=== PATIENT | male | born 1955 | race Caucasian/White ===

== ENCOUNTER 2016-05-17 03:30 | Emergency (ER) | payer MEDICARE, MEDICAID ==
--- NOTE | 2016-05-17 03:58 | DIRPT ---
CLINICAL DATA: Altered mental status. Lower extremity weakness. Code stroke. EXAM: CT HEAD WITHOUT CONTRAST TECHNIQUE: Contiguous axial images were obtained from the base of the skull through the vertex without intravenous contrast. COMPARISON: CT 08/15/2014 FINDINGS: Remote right cerebellar infarct, unchanged. No CT findings of acute ischemia. Generalized atrophy and chronic small vessel ischemic change, stable from prior. No intracranial hemorrhage, mass effect, or midline shift. No hydrocephalus. The basilar cisterns are patent. No evidence of territorial infarct. No intracranial fluid collection. Calvarium is intact. Included paranasal sinuses and mastoid air cells are well aerated. IMPRESSION: 1. No acute intracranial abnormality. 2. Stable atrophy, chronic small vessel ischemic change, and remote right cerebellar infarct. Electronically Signed By: Emiliana Garcia M.D. On: 05/17/2016 03:56
[2016-05-17 04:05] VITALS: TEMP 97.9; BMI 348.7
--- NOTE | 2016-05-17 04:22 | DIRPT ---
CLINICAL DATA: Initial evaluation for eighth sepsis. EXAM: PORTABLE CHEST 1 VIEW COMPARISON: Prior study from 03/10/2016. FINDINGS: Right-sided transvenous pacemaker/AICD is in place, stable. Cardiomegaly unchanged. Mediastinal silhouette within normal limits. Lungs are normally inflated. Mild central perihilar vascular congestion without overt pulmonary edema. No focal infiltrates. No pneumothorax. No acute osseus abnormality. IMPRESSION: 1. Stable cardiomegaly with mild central perihilar vascular congestion without overt pulmonary edema. 2. No other active cardiopulmonary disease. Electronically Signed By: Miguel Angel Heard M.D. On: 05/17/2016 04:19
--- NOTE | 2016-05-17 04:41 | EDPRACDOC ---
- General Information Chief Complaint: Generalized Weakness Stated Complaint: WEAKNESS Time Seen by Provider: 05/17/16 03:36 Information Source: Patient, [facility], [employer] Mode Of Arrival: Ambulance Home Medications: Home Medications Spironolactone [Aldactone] 25 mg PO BID 07/15/13 Gabapentin [Neurontin] 100 mg PO BID 02/14/14 Nitroglycerin [Nitrostat] 0.4 mg SL Q5MX3 PRN 02/14/14 Omeprazole [Prilosec] 40 mg PO HS 02/14/14 Vitamins, Multiple [Unicap] 1 cap PO DAILY 02/14/14 Metolazone [Zaroxolyn] 5 mg PO DAILY PRN 07/19/14 Glipizide [Glucotrol] 10 mg PO BID 08/15/14 POTASSIUM CHLORIDE Tablet [Klor-Con M20] 20 meq PO BID 08/15/14 Alprazolam [Xanax] 0.5 mg PO BID 04/20/15 Aspirin/Dipyridamole [Aggrenox 25 mg-200 mg Capsule] 1 each PO BID 04/20/15 Carvedilol [Coreg] 3.125 mg PO BID 04/20/15 Febuxostat [Uloric] 80 mg PO Q48H 04/20/15 Hydrocodone Bit/Acetaminophen [Buckeye 10-325 Tablet] 1 each PO Q6H PRN 04/20/15 Lactulose [Constulose] 15 ml PO .PRN PRN 04/20/15 Mag Hydrox/Al Hydrox/Simeth [Maalox Maximum Strength Susp] 30 ml PO Q4H PRN Magnesium Hydroxide/Al Hydrox [Mylanta Liquid] 30 ml PO Q4H PRN 04/20/15 Temazepam [Restoril] 15 mg PO HS PRN 04/20/15 Torsemide [Demadex] 40 mg PO QAM 04/20/15 Amiodarone HCl 100 mg PO DAILY 04/27/15 Fluoxetine HCl [Prozac] 40 mg PO DAILY 04/27/15 Insulin Aspart [Novolog] 6 units SQ TIDAC 04/27/15 Insulin Glargine,Hum.rec.anlog [Toujeo Solostar] 80 unit SQ DAILY 04/27/15 Isosorbide Mononitrate [Imdur] 60 mg PO DAILY 04/27/15 Docusate Sodium [Colace] 100 mg PO DAILY 12/21/15 Acetaminophen Ex Str Tablet [TYLENOL EXTRA STRENGTH Tablet] 1,000 mg PO QID PRN 12/29/15 Cholecalciferol (Vitamin D3) [Vitamin D3] 2,000 unit PO DAILY 12/29/15 Amoxicillin/Potassium Clav [Augmentin 875-125 Tablet] 1 each PO TIDAC #30 tablet 01/02/16 Lactobacillus Acidophilus [Florajen] 460 mg PO DAILY #60 capsule 01/02/16 Moxifloxacin HCl [Avelox] 400 mg PO DAILY #10 tablet 01/02/16 Tramadol HCl 50 mg PO Q6-8H PRN #60 tablet 01/02/16 Ciprofloxacin HCl [Cipro] 500 mg PO BID #20 tab 05/17/16 Allergies/Adverse Reactions: Allergies Allergy/AdvReac Type Severity Reaction Status Date / Time Cephalosporins Allergy Unknown Unknown/See Verified 10/05/15 08:59 Comments morphine Allergy Unknown Hypotension Verified 10/05/15 08:59 Penicillins Allergy Unknown/See Verified 10/05/15 08:59 Comments - History of Present Illness Onset: 7 hours Exact Onset of Symptoms: Unknown HPI: AT 0300, THE CUSTODIAL STAFF NOTED THAT THE PATIENT WAS WEAKER THAN NORMAL. THEY WERE CONCERNED HE COULD HAVE AN INFECTION. EMS NOTED FACIAL DROOPING AND WEAKNESS, CONCERN FOR STROKE. UNCLEAR ONSET. PT HAS HAD PRIOR CVA, CHRONIC LEFT SIDED WEAKNESS AND ATAXIA. Symptoms Started: Reports: Gradually, At Rest Symptoms Description: Constant ED Past Medical History - Patient Medical History Neurological History: Reports: Cerebrovascular Accident (most recent October 2012.) Cardiac History: Reports: Coronary Artery Disease, Atrial Fibrillation, Hypertension, Congestive Heart Failure (Severe. Echo 2013: EF 30% CHR. 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 Denies: Substance Use Disorder Systemic History: Reports: Anemia, Diabetes. Denies: Cancer Additional Past Medical History: CHRONIC BACK PAIN Surgical History: Reports: Cholecystectomy (2013- Dr Tovar), Angioplasty, Cardiac Catheterization, Other (AICD in place 03/2013.) - Family Medical History Reports: Hypertension (BROTHER), Diabetes (BROTHERS), Cancer (MOTHER PANCREATIC CA), Stroke (BROTHER), Cardiac Disorders (FATHER) - Social Medical History Smoking Status: Never smoker Social History: Denies: Substance Use Disorder ETOH: None Substance Abuse: None Lives In: Assisted Living EDM Review of Systems - Review of Systems ROS Negative Except as Marked: Yes All systems reviewed and were negative except as marked - Physical Exam Constitutional: Alert, Cachectic, Well nourished, Well appearing Oriented to: Person Last recorded Vital Signs: Last Vital Signs Temp 97.9 F 05/17/16 03:40 Pulse 103 05/17/16 03:40 Resp 18 05/17/16 03:40 BP 131/75 05/17/16 03:40 Pulse Ox 92 05/17/16 03:40 Oxygen Pulse Oxygen Saturation 92 O2 Device Nasal Cannula Oxygen Flow Rate 2 Fraction of Inspired Oxygen ( FIO2) - HEENT Head: Normal Eye Exam: Normal. negative: Pale Conjunctiva, Scleral Icterus Oropharynx: Normal. negative: Membranes Dry Neck: Normal. negative: Limited ROM, Lymphadenopathy, Meningeal Signs - Respiratory/Cardiovascular Respiratory: Normal - CTA Cardiovascular: Normal - GI Auscultation: Normal (NABS) Palpation: Normal (Soft,No rebound or guarding, non distended) Tenderness: Non tender Sylvester's Sign: Negative - Bladder: Normal - Musculoskeletal Extremities: Normal, Other (LEFT FOREFOOT AMP) - Integumentary Skin: Normal, Warm, Dry - Neurologic Motor Function: Other (ANA LAURA UPPER EXT NORMAL STRENGTH, NO DRIFT) Mood Description: Calm, Flat - Results 05/17/16 04:30 05/17/16 04:30 - EKG EKG #1 EKG Time: 03:53 -: Yes EKG interpreted by me Rate: bpm: 96 Converse: Normal Rhythm: Paced Block: None Hypertrophy: None ST: Nonsp - Diagnostic Imaging Head Image interpreted by: Radiologist Patient Name: ALECIA ANAYA LOC: ED : 1955 AGE: 60 Order Date:05/17/16 Date of Service: Report # [id number] Ord Physician: Gretchen Blackburn MD Exam # [id number] Emergency Physician: Gretchen Blackburn MD Exam(s): [id number] CT/CT HEAD W/O CM CLINICAL DATA: Altered mental status. Lower extremity weakness. Code stroke. EXAM: CT HEAD WITHOUT CONTRAST TECHNIQUE: Contiguous axial images were obtained from the base of the skull through the vertex without intravenous contrast. COMPARISON: CT 08/15/2014 FINDINGS: Remote right cerebellar infarct, unchanged. No CT findings of acute ischemia. Generalized atrophy and chronic small vessel ischemic change, stable from prior. No intracranial hemorrhage, mass effect, or midline shift. No hydrocephalus. The basilar cisterns are patent. No evidence of territorial infarct. No intracranial fluid collection. Calvarium is intact. Included paranasal sinuses and mastoid air cells are well aerated. IMPRESSION: 1. No acute intracranial abnormality. 2. Stable atrophy, chronic small vessel ischemic change, and remote right cerebellar infarct. Electronically Signed By: Emiliana Garcia M.D. On: 05/17/2016 03:56 Electronically Signed By: Emiliana Garcia MD Electronically Signed Date/Time: 358 Dictate Date/Time: 05/17/16351 Technologist: Haley Nicole Transcribed By: Leighton Transcribed Date/Time: 05/17/16355 Chest Image interpreted by: Radiologist Patient Name: ALECIA ANAYA LOC: ED : 1955 AGE: 60 Order Date:05/17/16 Date of Service: Report # [id number] Ord Physician: Gretchen Blackburn MD Exam # [id number] Emergency Physician: Gretchen Blackburn MD Exam(s): [id number] RAD/DG CHEST PORTABLE CLINICAL DATA: Initial evaluation for eighth sepsis. EXAM: PORTABLE CHEST 1 VIEW COMPARISON: Prior study from 03/10/2016. FINDINGS: Right-sided transvenous pacemaker/AICD is in place, stable. Cardiomegaly unchanged. Mediastinal silhouette within normal limits. Lungs are normally inflated. Mild central perihilar vascular congestion without overt pulmonary edema. No focal infiltrates. No pneumothorax. No acute osseus abnormality. IMPRESSION: 1. Stable cardiomegaly with mild central perihilar vascular congestion without overt pulmonary edema. 2. No other active cardiopulmonary disease. Electronically Signed By: Miguel Angel Heard M.D. On: 05/17/2016 04:19 Electronically Signed By: Miguel Angel Heard MD Electronically Signed Date/Time: 422 Dictate Date/Time: 05/17/16411 Technologist: Estefany Valdovinos Transcribed By: Leighton Transcribed Date/Time: 05/17/16 0419 - Departure Disposition: Assisted Living Facility Condition: Stable Final Diagnosis: Hypokalemia, Acute on chronic renal insufficiency UTI (urinary tract infection) Qualifiers: Urinary tract infection type: acute cystitis Hematuria presence: without hematuria Qualified Code(s): N30.00 - Acute cystitis without hematuria Instructions: Weakness (General), Urinary Tract Infection in Men (ED), Dysuria Education/Counseling Given To: Patient Education/Counseling Given Regarding: Diagnosis, Treatment, Prognosis Referrals: Ej Gupta PA [Primary Care Provider] - One Week Prescriptions: Ciprofloxacin HCl [Cipro] 500 mg PO BID #20 tab
[2016-05-17 04:51] LABS: AUTOMATED BASOPHIL 0.6 % (0-2); AUTOMATED EOSINOPHIL 10.4 % (0-5); AUTOMATED LYMPH 13.7 % (17-44); AUTOMATED MONOCYTE 10.9 % (3-10); AUTOMATED NEUTROPHIL 64.4 % (45-76); MPV 7.6 fL (7.4-10.4)
[2016-05-17 05:02] LABS: PARTIAL THROMB. TIME 26.1 SEC (22-35); PT-INR 1.1
[2016-05-17 05:05] LABS: CALC CORRECTED 9.8 MG/DL (8.4-10.2); CALCIUM 9.5 MG/DL (8.4-10.2); CREATININE 2.3 MG/DL (0.66-1.25)
[2016-05-17] MEDS ORDERED: NS 1,000 ML IV ONE (05:16)
[2016-05-17] MEDS ORDERED: KCl 10 mEq/100 ml Premix (Run) 10 MEQ/100 ML RTU IV ONE (05:16)
[2016-05-17 05:20] LABS: LEUKOCYTES/URINE 2+ (NEGATIVE); NITRITE/URINE NEG (NEGATIVE); RBC/URINE 0-2 (0-2); URINE OCCULT BLOOD 1+ (NEG/TRACE); WBC/URINE 40-50 (0-2)
[2016-05-17] MEDS ORDERED: LEVOFLOXACIN 750 MG TAB PO ONE (05:28)
[2016-05-17] MEDS ORDERED: CIPROFLOXACIN HCL 500 MG TAB PO ONE (05:30)
[2016-05-17 05:53] VITALS: BP 126/84; PULSE 86
== END 2016-05-17 07:58 | disposition home or self-care (01) ==
LOC: ED 03:30
DX: N30.00 Acute cystitis without hematuria (principal); R29.810 Facial weakness
CPT/HCPCS: 36415; 70450; 71010; 80053; 81001; 83605; 85025; 85610; 85730; 87040; 87077; 87086; 87186; 93005; 96365; 99283; A9270; J3480; J3490

== ENCOUNTER 2016-06-09 00:37 | Inpatient (IN) | payer MEDICARE, MEDICAID ==
[2016-06-09] MEDS ORDERED: Albuterol/Ipratropium Neb 3 ML NEB NEB ONE (01:07)
[2016-06-09] MEDS ORDERED: METHYLPREDNISOLONE 125 MG/2 ML VIAL IV ONE (01:07)
[2016-06-09] MEDS ORDERED: NS 1,000 ML IV ONE (01:08)
[2016-06-09 01:24] LABS: AUTOMATED BASOPHIL 0.4 % (0-2); AUTOMATED EOSINOPHIL 6.3 % (0-5); AUTOMATED LYMPH 6.9 % (17-44); AUTOMATED MONOCYTE 9.4 % (3-10)
[2016-06-09 01:33] LABS: CALC CORRECTED 9.7 MG/DL (8.4-10.2); CALCIUM 9.5 MG/DL (8.4-10.2); CREATININE 2.2 MG/DL (0.66-1.25); TOTAL PROTEIN 7.9 G/DL (6.3-8.2)
[2016-06-09 01:38] LABS: PARTIAL THROMB. TIME 27.5 SEC (22-35); PT-INR 1.1
[2016-06-09 01:48] LABS: ALLEN'S TEST PASS; BEb 8.3 (+/- 2); TCO2 35.5 MMOL/L (23-27)
[2016-06-09 01:49] LABS: ABG Draw Site Right Radial
[2016-06-09 01:50] LABS: LEUKOCYTES/URINE 2+ (NEGATIVE); NITRITE/URINE NEG (NEGATIVE); URINE OCCULT BLOOD 1+ (NEG/TRACE); WBC/URINE TNTC (0-2)
[2016-06-09] MEDS ORDERED: Levofloxacin 750 mg/150 ml D5W 750 MG/150 ML RTU IV ONE (02:05)
--- NOTE | 2016-06-09 02:32 | DIRPT ---
CLINICAL DATA: Cough and shortness of breath. EXAM: PORTABLE CHEST 1 VIEW COMPARISON: 05/18/2016 FINDINGS: Multi lead right-sided pacemaker remains in place. Cardiomegaly is unchanged. Progressive pulmonary edema from prior. No confluent airspace disease or large pleural effusion. No pneumothorax. IMPRESSION: Stable cardiomegaly with progressive pulmonary edema. Electronically Signed By: Emiliana Garcia M.D. On: 06/09/2016 02:30
--- NOTE | 2016-06-09 02:48 | EDPRACDOC ---
- General Information Chief Complaint: Dyspnea/Resp distress Stated Complaint: RESP Time Seen by Provider: 06/09/16 00:47 Information Source: Patient, Applications Support Analyst Mode Of Arrival: Ambulance Home Medications: Home Medications Spironolactone [Aldactone] 25 mg PO BID 07/15/13 Gabapentin [Neurontin] 100 mg PO BID 02/14/14 Nitroglycerin [Nitrostat] 0.4 mg SL Q5MX3 PRN 02/14/14 Omeprazole [Prilosec] 40 mg PO HS 02/14/14 Vitamins, Multiple [Unicap] 1 cap PO DAILY 02/14/14 Metolazone [Zaroxolyn] 5 mg PO DAILY PRN 07/19/14 Glipizide [Glucotrol] 10 mg PO BID 08/15/14 POTASSIUM CHLORIDE Tablet [Klor-Con M20] 20 meq PO BID 08/15/14 Alprazolam [Xanax] 0.5 mg PO BID 04/20/15 Aspirin/Dipyridamole [Aggrenox 25 mg-200 mg Capsule] 1 each PO BID 04/20/15 Carvedilol [Coreg] 3.125 mg PO BID 04/20/15 Febuxostat [Uloric] 80 mg PO Q48H 04/20/15 Hydrocodone Bit/Acetaminophen [Booker 10-325 Tablet] 1 each PO Q6H PRN 04/20/15 Lactulose [Constulose] 15 ml PO .PRN PRN 04/20/15 Mag Hydrox/Al Hydrox/Simeth [Maalox Maximum Strength Susp] 30 ml PO Q4H PRN Magnesium Hydroxide/Al Hydrox [Mylanta Liquid] 30 ml PO Q4H PRN 04/20/15 Temazepam [Restoril] 15 mg PO HS PRN 04/20/15 Torsemide [Demadex] 40 mg PO QAM 04/20/15 Amiodarone HCl 100 mg PO DAILY 04/27/15 Fluoxetine HCl [Prozac] 40 mg PO DAILY 04/27/15 Insulin Aspart [Novolog] 6 units SQ TIDAC 04/27/15 Insulin Glargine,Hum.rec.anlog [Toujeo Solostar] 80 unit SQ DAILY 04/27/15 Isosorbide Mononitrate [Imdur] 60 mg PO DAILY 04/27/15 Docusate Sodium [Colace] 100 mg PO DAILY 12/21/15 Acetaminophen Ex Str Tablet [TYLENOL EXTRA STRENGTH Tablet] 1,000 mg PO QID PRN 12/29/15 Cholecalciferol (Vitamin D3) [Vitamin D3] 2,000 unit PO DAILY 12/29/15 Amoxicillin/Potassium Clav [Augmentin 875-125 Tablet] 1 each PO TIDAC #30 tablet 01/02/16 Lactobacillus Acidophilus [Florajen] 460 mg PO DAILY #60 capsule 01/02/16 Moxifloxacin HCl [Avelox] 400 mg PO DAILY #10 tablet 01/02/16 Tramadol HCl 50 mg PO Q6-8H PRN #60 tablet 01/02/16 Ciprofloxacin HCl [Cipro] 500 mg PO BID #20 tab 05/17/16 Allergies/Adverse Reactions: Allergies Allergy/AdvReac Type Severity Reaction Status Date / Time Cephalosporins Allergy Unknown Unknown/See Verified 06/09/16 00:53 Comments morphine Allergy Unknown Hypotension Verified 06/09/16 00:53 Penicillins Allergy Rash-Genera Verified 06/09/16 02:05 lized - History of Present Illness Onset: TONIGHT HPI: PT PRESENTS FROM NURSING FACILITY WITH SHOB AND AUDIBLE WHEEZING. PT HAS CHRONIC RESPIRATORY ISSUES BUT DOES NOT WEAR OXYGEN ON A REGULAR BASIS. PT STATES HE HAS GAINED WEIGHT OVER THE PAST SEVERAL DAYS. STATES HE HAS GOTTEN PROGRESSIVELY WORSE TODAY. Shortness of Breath: Moderate Relevant History: Reports: COPD, Heart Failure (CHF) Cough: Reports: Non-productive Rhinorrhea: Reports: Clear Ear Symptoms: Reports: None SOB Worsens with: Reports: Exertion, Movement, Coughing, Lying Flat, Position, Orthopnea SOB Improves with: Reports: Sitting up, Rest, Position Recently treated infections:: Denies: Otitis media, Pneumonia, URI - Treatment Prior to ED Arrival Reported Medications/Treatment [facility] Treatment BLS IV Yes ED Past Medical History - History Reviewed Yes Nurses notes reviewed and agree except as marked - Patient Medical History Neurological History: Reports: Cerebrovascular Accident (most recent October 2012.) Cardiac History: Reports: Coronary Artery Disease, Atrial Fibrillation, Hypertension, Congestive Heart Failure (Severe. Echo 2013: EF 30% CHR. 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 Denies: Substance Use Disorder Systemic History: Reports: Anemia, Diabetes. Denies: Cancer Additional Past Medical History: CHRONIC BACK PAIN Surgical History: Reports: Cholecystectomy, Angioplasty, Cardiac Catheterization , Other (AICD in place 03/2013.) - Family Medical History Reports: Hypertension (BROTHER), Diabetes (BROTHERS), Cancer (MOTHER PANCREATIC CA), Stroke (BROTHER), Cardiac Disorders (FATHER) - Social Medical History Smoking Status: Never smoker Social History: Denies: Substance Use Disorder EDM Review of Systems - Review of Systems ROS Negative Except as Marked: Yes All systems reviewed and were negative except as marked - Physical Exam Constitutional: Alert. negative: Well appearing Oriented to: Time, Person, Place Last recorded Vital Signs: Last Vital Signs Temp 99.1 F 06/09/16 00:38 Pulse 68 06/09/16 00:38 Resp 24 06/09/16 00:47 BP 116/58 L 06/09/16 00:38 Pulse Ox 90 L 06/09/16 00:38 Oxygen Pulse Oxygen Saturation 90 O2 Device Nasal Cannula Oxygen Flow Rate 2 Fraction of Inspired Oxygen ( FIO2) - HEENT Head: Normal ( normocephalic) Eye Exam: Normal (PERRL, EOMI, Sclera white) Oropharynx: Membranes Dry Tympanic Membrane: Normal Nose: No Symptoms Reported (septum midline) Neck: Normal (FROM, trachea at midline) - Respiratory/Cardiovascular Respiratory: Tachypnea, Wheezes (AUDIBLE - EXPIRATORY) Cardiovascular: Normal (RRR without murmur, gallop or rub) - GI Auscultation: Normal (NABS) Palpation: Normal (Soft,No rebound or guarding, non distended) Tenderness: Non tender Sylvester's Sign: Negative Rectal Exam: Deferred - Musculoskeletal Back: Normal (Non-Tender) Extremities: Normal (Normal tone, Pulses 2+ No cyanosis or edema, FROM) - Integumentary Skin: Normal, Warm, Dry Lymphatics: Normal (no adenopathy) - Neurologic Memory Impaired: Normal Motor Function: Normal (Normal tone, Pulses 2+ No cyanosis or edema, FROM) Cranial Nerve: Normal (CN II-X11 intact sensation, strength 5/5) Cerebellar: Normal Mood Description: Normal Perception: Normal ED SOB MDM - Differential Diagnosis Differential Diagnosis: Pnuemonia, Respiratory Failure, Respiratory Insufficiency - Results Result Diagrams: 06/09/16 01:00 06/09/16 01:00 Results: WBC 6.3 xk/uL (3.8-10.8) 06/09/16 01:00 RBC 4.33 xM/uL (4.70-6.10) L 06/09/16 01:00 Hgb 12.2 g/dL (14.0-18.0) L 06/09/16 01:00 Hct 36.8 % (42-52) L 06/09/16 01:00 MCV 85 fL (80-94) 06/09/16 01:00 MCH 28.2 pg (27-32) 06/09/16 01:00 MCHC 33.2 g/dl (33-36) 06/09/16 01:00 RDW 16.2 % (11.5-14.5) H 06/09/16 01:00 Plt Count 117 xk/uL (130-400) L 06/09/16 01:00 MPV 7.0 fL (7.4-10.4) L 06/09/16 01:00 Neut % (Auto) 77.0 % (45-76) H 06/09/16 01:00 Lymph % (Auto) 6.9 % (17-44) L 06/09/16 01:00 [place] % (Auto) 9.4 % (3-10) 06/09/16 01:00 Eos % (Auto) 6.3 % (0-5) H 06/09/16 01:00 Baso % (Auto) 0.4 % (0-2) 06/09/16 01:00 Absolute Neuts (auto) 4.85 xk/uL (1.7-8.2) 06/09/16 01:00 Absolute Lymphs (auto) 0.38 xk/uL (0.65-4.75) L 06/09/16 01:00 PT 11.8 SEC (9.2-11.2) H 06/09/16 01:00 INR 1.1 06/09/16 01:00 APTT 27.5 SEC (22-35) 06/09/16 01:00 Puncture Site Right radial 06/09/16 01:40 pH 7.440 pH UNITS (7.35-7.45) 06/09/16 01:40 pCO2 50.0 mmHg (35-45) H 06/09/16 01:40 pO2 58.0 mmHg (80-100) L 06/09/16 01:40 HCO3 34.0 MMOL/L (22-26) H 06/09/16 01:40 Total CO2 35.5 MMOL/L (23-27) H 06/09/16 01:40 Base Excess 8.3 (+/- 2) H 06/09/16 01:40 FiO2 % 21% 06/09/16 01:40 Specimen Drawn By Smijen 06/09/16 01:40 Sodium 133 mEq/L (137-146) L 06/09/16 01:00 Potassium 3.5 mEq/L (3.5-5.1) 06/09/16 01:00 Chloride 91 mEq/L (98-107) L 06/09/16 01:00 Carbon Dioxide 32 mMOL/L (22-33) 06/09/16 01:00 Anion Gap 14 mEq/L (8-16) 06/09/16 01:00 BUN 77 MG/DL (9-20) H 06/09/16 01:00 Creatinine 2.20 MG/DL (0.66-1.25) H 06/09/16 01:00 Estimated GFR (MDRD) 31 mL/min (>=60) L 06/09/16 01:00 Glucose 201 mg/dL (70-99) H 06/09/16 01:00 Calculated Osmolality 285 MOs/Kg (270-290) 06/09/16 01:00 Lactic Acid 1.9 mEq/L (0.7-2.1) 06/09/16 01:00 Calcium 9.5 MG/DL (8.4-10.2) 06/09/16 01:00 Corrected Calcium 9.7 MG/DL (8.4-10.2) 06/09/16 01:00 Total Bilirubin 1.4 MG/DL (0.2-1.3) H 06/09/16 01:00 AST 39 IU/L (17-59) 06/09/16 01:00 ALT 34 IU/L (21-72) 06/09/16 01:00 Alkaline Phosphatase 103 IU/L (50-160) 06/09/16 01:00 Creatine Kinase 61 IU/L (55-170) 06/09/16 01:00 Troponin I 0.06 ng/mL (<.04) 06/09/16 01:00 Ekb-[id number]-Boqfhzzwscw Pept 2220 pg/mL (0-900) H 06/09/16 01:00 Total Protein 7.9 G/DL (6.3-8.2) 06/09/16 01:00 Albumin 3.8 G/DL (3.5-5.0) 06/09/16 01:00 Urine Color Yellow 06/09/16 01:38 Urine Clarity Cldy 06/09/16 01:38 Urine pH 6.0 (5.0-8.0) 06/09/16 01:38 Ur Specific [place] 1.010 (1.003-1.035) 06/09/16 01:38 Urine Protein 1+ (NEG/TRACE) H 06/09/16 01:38 Urine Glucose (UA) Neg (NEGATIVE) 06/09/16 01:38 Urine Ketones Neg (NEGATIVE) 06/09/16 01:38 Urine Occult Blood 1+ (NEG/TRACE) H 06/09/16 01:38 Urine Nitrite Neg (NEGATIVE) 06/09/16 01:38 Urine Bilirubin Neg (NEGATIVE) 06/09/16 01:38 Urine Urobilinogen <2.0 MG/DL (0-1) 06/09/16 01:38 Ur Leukocyte Esterase 2+ (NEGATIVE) H 06/09/16 01:38 Urine WBC Tntc (0-2) H 06/09/16 01:38 Urine WBC Clumps Present (NONE) H 06/09/16 01:38 Urine Bacteria Few (NEG/FEW) 06/09/16 01:38 Urine Yeast Sm amt (NONE) 06/09/16 01:38 Lab Results 06/09/16 06/09/16 06/09/16 01:40 01:38 01:00 WBC RBC Hgb Hct MCV MCH MCHC RDW Plt Count MPV Neut % (Auto) Lymph % (Auto) [place] % (Auto) Eos % (Auto) Baso % (Auto) Absolute Neuts (auto) Absolute Lymphs (auto) PT INR APTT Puncture Site Right radial pH 7.440 pCO2 50.0 H pO2 58.0 L HCO3 34.0 H Total CO2 35.5 H Base Excess 8.3 H FiO2 % 21% Specimen Drawn By Smijen Sodium Potassium Chloride Carbon Dioxide Anion Gap BUN Creatinine Estimated GFR (MDRD) Glucose Calculated Osmolality Lactic Acid 1.9 Calcium Corrected Calcium Total Bilirubin AST ALT Alkaline Phosphatase Creatine Kinase Troponin I Ifo-L-Nzytqtjuxua Pept Total Protein Albumin Urine Color Yellow Urine Clarity Cldy Urine pH 6.0 Ur Specific [place] 1.010 Urine Protein 1+ H Urine Glucose (UA) Neg Urine Ketones Neg Urine Occult Blood 1+ H Urine Nitrite Neg Urine Bilirubin Neg Urine Urobilinogen <2.0 Ur Leukocyte Esterase 2+ H Urine WBC Tntc H Urine WBC Clumps Present H Urine Bacteria Few Urine Yeast Sm amt 06/09/16 06/09/16 06/09/16 01:00 01:00 01:00 WBC 6.3 RBC 4.33 L Hgb 12.2 L Hct 36.8 L MCV 85 MCH 28.2 MCHC 33.2 RDW 16.2 H Plt Count 117 L MPV 7.0 L Neut % (Auto) 77.0 H Lymph % (Auto) 6.9 L [place] % (Auto) 9.4 Eos % (Auto) 6.3 H Baso % (Auto) 0.4 Absolute Neuts (auto) 4.85 Absolute Lymphs (auto) 0.38 L PT 11.8 H INR 1.1 APTT 27.5 Puncture Site pH pCO2 pO2 HCO3 Total CO2 Base Excess FiO2 % Specimen Drawn By Sodium 133 L Potassium 3.5 Chloride 91 L Carbon Dioxide 32 Anion Gap 14 BUN 77 H Creatinine 2.20 H Estimated GFR (MDRD) 31 L Glucose 201 H Calculated Osmolality 285 Lactic Acid Calcium 9.5 Corrected Calcium 9.7 Total Bilirubin 1.4 H AST 39 ALT 34 Alkaline Phosphatase 103 Creatine Kinase 61 Troponin I 0.06 Qgk-R-Gipbaklozhr Pept 2220 H Total Protein 7.9 Albumin 3.8 Urine Color Urine Clarity Urine pH Ur Specific [place] Urine Protein Urine Glucose (UA) Urine Ketones Urine Occult Blood Urine Nitrite Urine Bilirubin Urine Urobilinogen Ur Leukocyte Esterase Urine WBC Urine WBC Clumps Urine Bacteria Urine Yeast - EKG EKG #1 EKG Time: 01:11 -: Yes EKG interpreted by me Rate: bpm: 65 [place]: Normal Rhythm: Paced Block: None Hypertrophy: None ST: Normal - Additional Information Additional Information: PT WAS GIVEN HIS NIGHT TIME MEDICATIONS BEFORE THE STAFF BECAME AWARE HE WAS IN DISTRESS, PT SLEEPY UPON ARRIVAL TO THE ED. - Departure Disposition: Admit IP To This Hospital Condition: Stable Final Diagnosis: Pulmonary edema Qualifiers: Chronicity: acute Qualified Code(s): J81.0 - Acute pulmonary edema Education/Counseling Given To: Patient Education/Counseling Given Regarding: Diagnosis, Treatment, Prognosis, Follow Up Referrals: Ej Gupta PA [Primary Care Provider] - One Week Prescriptions: No Action Spironolactone [Aldactone] 25 mg PO BID Omeprazole [Prilosec] 40 mg PO HS Gabapentin [Neurontin] 100 mg PO BID Vitamins, Multiple [Unicap] 1 cap PO DAILY Nitroglycerin [Nitrostat] 0.4 mg SL Q5MX3 PRN PRN Reason: Chest Pain Or Discomfort Metolazone [Zaroxolyn] 5 mg PO DAILY PRN PRN Reason: SWELLING Glipizide [Glucotrol] 10 mg PO BID POTASSIUM CHLORIDE Tablet [Klor-Con M20] 20 meq PO BID Temazepam [Restoril] 15 mg PO HS PRN PRN Reason: Sleep Or Insomnia Mag Hydrox/Al Hydrox/Simeth [Maalox Maximum Strength Susp] 30 ml PO Q4H PRN PRN Reason: UNKNOWN Lactulose [Constulose] 15 ml PO .PRN PRN PRN Reason: CONSTIAPTION Hydrocodone Bit/Acetaminophen [Booker 10-325 Tablet] 1 each PO Q6H PRN PRN Reason: Pain Magnesium Hydroxide/Al Hydrox [Mylanta Liquid] 30 ml PO Q4H PRN PRN Reason: INDIGESTION Carvedilol [Coreg] 3.125 mg PO BID Aspirin/Dipyridamole [Aggrenox 25 mg-200 mg Capsule] 1 each PO BID Alprazolam [Xanax] 0.5 mg PO BID Febuxostat [Uloric] 80 mg PO Q48H Torsemide [Demadex] 40 mg PO QAM Isosorbide Mononitrate [Imdur] 60 mg PO DAILY Fluoxetine HCl [Prozac] 40 mg PO DAILY Amiodarone HCl 100 mg PO DAILY Insulin Glargine,Hum.rec.anlog [Toujeo Solostar] 80 unit SQ DAILY Insulin Aspart [Novolog] 6 units SQ TIDAC Docusate Sodium [Colace] 100 mg PO DAILY Acetaminophen Ex Str Tablet [TYLENOL EXTRA STRENGTH Tablet] 1,000 mg PO QID PRN PRN Reason: Mild Pain Or Fever Cholecalciferol (Vitamin D3) [Vitamin D3] 2,000 unit PO DAILY Amoxicillin/Potassium Clav [Augmentin 875-125 Tablet] 1 each PO TIDAC #30 tablet Moxifloxacin HCl [Avelox] 400 mg PO DAILY #10 tablet Lactobacillus Acidophilus [Florajen] 460 mg PO DAILY #60 capsule Tramadol HCl 50 mg PO Q6-8H PRN #60 tablet PRN Reason: Pain Scale Rating 1 To 3 Ciprofloxacin HCl [Cipro] 500 mg PO BID #20 tab Decision to Admit Time: 03:43 Decision to admit date: 06/09/16 Decision to admit: from ED - Physician Consulted Hospitalist Time Called: 03:44 Provider Called: Yaya Eli Time Batch Unloader Returned Call: 03:44
--- NOTE | 2016-06-09 03:06 | HISTPHYS ---
- Chief Complaint shortness of breath - History of Present Illness PRIMARY CARE PROVIDER: Eliseo Gupta at [facility] HPI: The patient is a 60 yo man with CHF, who does not wear oxygen at home, who presents with acute shortness of breath. Onset: 4 days ago. Duration: intermittent. Location: generalized. Character: can't get a good breath. Alleviated by: Nothing. Exacerbated by: Nothing. Associated Symptoms: Coughing productive of white sputum. Wheezing. No chest pain or palpitations. No fever or chills. Has had a 7 lb weight gain in the last week. Noticed increased swelling in abdomen and legs. Treatments: none at home except usual medications. Reviewed patient's records from [facility]. Patient was described as weak and wheezing, and had complained about pain with urination. Vitals included pulse 66, O2 94%, BS 64 then after orange juice and cookie BS was 94. He presents with a goldenrod DNR. - Medical History Cardiac History: Reports: Coronary Artery Disease, Atrial Fibrillation, Hypertension, Congestive Heart Failure (Severe. Echo 2013: EF 30%. 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 Denies: Cancer Neurological History: Reports: Cerebrovascular Accident (most recent October 2012.) Psychological History: Reports: Depression, Anxiety. Denies: Substance Use Disorder - Surgical History Reports: Cholecystectomy, Angioplasty, Cardiac Catheterization, Other (AICD in place 03/2013. Left partial amputation of foot.) - Medictions/Allergies Allergies Cephalosporins Allergy (Unknown, Verified 06/09/16 00:53) Unknown/See Comments morphine Allergy (Unknown, Verified 06/09/16 00:53) Hypotension Penicillins Allergy (Verified 06/09/16 02:05) Rash-Generalized Current Medication List: Reviewed Home Medications Spironolactone [Aldactone] 25 mg PO BID 07/15/13 Gabapentin [Neurontin] 100 mg PO BID 02/14/14 Nitroglycerin [Nitrostat] 0.4 mg SL Q5MX3 PRN 02/14/14 Omeprazole [Prilosec] 40 mg PO HS 02/14/14 Vitamins, Multiple [Unicap] 1 cap PO DAILY 02/14/14 Metolazone [Zaroxolyn] 5 mg PO DAILY PRN 07/19/14 Glipizide [Glucotrol] 10 mg PO BID 08/15/14 POTASSIUM CHLORIDE Tablet [Klor-Con M20] 20 meq PO BID 08/15/14 Alprazolam [Xanax] 0.5 mg PO BID 04/20/15 Aspirin/Dipyridamole [Aggrenox 25 mg-200 mg Capsule] 1 each PO BID 04/20/15 Carvedilol [Coreg] 3.125 mg PO BID 04/20/15 Febuxostat [Uloric] 80 mg PO Q48H 04/20/15 Hydrocodone Bit/Acetaminophen [[place] 10-325 Tablet] 1 each PO Q6H PRN 04/20/15 Lactulose [Constulose] 15 ml PO .PRN PRN 04/20/15 Mag Hydrox/Al Hydrox/Simeth [Maalox Maximum Strength Susp] 30 ml PO Q4H PRN Magnesium Hydroxide/Al Hydrox [Mylanta Liquid] 30 ml PO Q4H PRN 04/20/15 Temazepam [Restoril] 15 mg PO HS PRN 04/20/15 Torsemide [Demadex] 40 mg PO QAM 04/20/15 Amiodarone HCl 100 mg PO DAILY 04/27/15 Fluoxetine HCl [Prozac] 40 mg PO DAILY 04/27/15 Insulin Aspart [Novolog] 6 units SQ TIDAC 04/27/15 Insulin Glargine,Hum.rec.anlog [[place] Solostar] 80 unit SQ DAILY 04/27/15 Isosorbide Mononitrate [Imdur] 60 mg PO DAILY 04/27/15 Docusate Sodium [Colace] 100 mg PO DAILY 12/21/15 Acetaminophen Ex Str Tablet [TYLENOL EXTRA STRENGTH Tablet] 1,000 mg PO QID PRN 12/29/15 Cholecalciferol (Vitamin D3) [Vitamin D3] 2,000 unit PO DAILY 12/29/15 Amoxicillin/Potassium Clav [Augmentin 875-125 Tablet] 1 each PO TIDAC #30 tablet 01/02/16 Lactobacillus Acidophilus [Florajen] 460 mg PO DAILY #60 capsule 01/02/16 Moxifloxacin HCl [Avelox] 400 mg PO DAILY #10 tablet 01/02/16 Tramadol HCl 50 mg PO Q6-8H PRN #60 tablet 01/02/16 Ciprofloxacin HCl [Cipro] 500 mg PO BID #20 tab 05/17/16 - Family History Reports: Hypertension (BROTHER), Diabetes (BROTHERS), Cancer (MOTHER PANCREATIC CA), Stroke (BROTHER), Cardiac Disorders (FATHER) - Social History Lives: in Assisted Living (at [facility]) Smoking Status: Never smoker Social History: Denies: Alcohol Use, Substance Use Disorder - Review of Systems GENERAL: No Fever, chills, or diaphoresis. Positive for fatigue/malaise. HEENT: No ear pain or discharge. No nasal discharge or bleeding. No throat pain or swelling. No eye pain or eye redness. RESPIRATORY: Cough, wheezing, shortness of breath. CARDIOVASCULAR: No chest pain or palpitations. GI: Chronic constipation. No abdominal pain, nausea, vomiting, diarrhea, or bloody stool. NEUROLOGICAL: No headache or focal weakness. INTEGUMENT: no new rashes, itching, or lesions. LYMPHATIC SYSTEM: no lymph node swelling or pain. MUSCULOSKELETAL: Has chronic pain but no new pain or joint swelling. GENITOURINARY: Has dysuria. Had prolonged UTI and [facility] ago. No hematuria. ENDOCRINE: No polyuria or polydipsia. HEME: No chronic anemia, bleeding, or easy bruising. - Physical Exam Vital Signs: Initial Vitals Temperature 99.1 F 06/09/16 00:38 Pulse Rate 68 06/09/16 00:38 Respiratory Rate 24 06/09/16 00:38 Blood Pressure 116/58 L 06/09/16 00:38 Pulse Oxygen Saturation 90 L 06/09/16 00:38 - Other Exam Other Exam Findings: GENERAL: Ill-appearing, morbidly obese, in acute distress. HEENT: Normocephalic, atraumatic; pupils equal and round. Nares patent, without discharge or bleeding. No oropharyngeal lesions or erythema. Mucous membranes are dry. NECK: is supple, no masses, trachea midline. Large neck circumference. RESPIRATORY: Clear to auscultation bilaterally. Chest wall movements are symmetric. No use of accessory muscles to breathe. Tachypnea. Bilateral rales and wheezing. No rhonchi. CARDIOVASCULAR: Normal S1, S2. Murmur 2/6 systolic. No rubs, or gallops. PMI non -displaced. Carotids: no carotid bruits. No bradycardia or tachycardia. DP pulses 2+ bilaterally. JVD not appreciated but difficult to evaluate due to patient's large neck. GI: soft, obese, nontender, non-distended, normal active bowel sounds. No hepatosplenomegaly. INTEGUMENT: Clean, dry, and intact. No rashes. MUSCULOSKELETAL: Moving all extremities. No cyanosis. No clubbing. Edema: 1+ lower extremity edema bilaterally. NEUROLOGICAL: Cranial nerves 2-12 grossly intact. Motor 4/5 throughout upper extremities, 3/5 in right lower extremity, and 3-/5 in left lower extremity ( per patient is chronic). Reflexes: 2+ bilaterally. Babinski: toe downgoing on right, no toe on left. Intact Finger to nose. Sensory grossly intact to light touch. Intact rapid alternating movements bilaterally. No pronator drift. PSYCHIATRIC: Fully oriented. Normal and appropriate affect. LYMPHATIC: No cervical lymphadenopathy. No supraclavicular lymphadenopathy. - Lab Results Laboratory Results - last 24 hr 06/09/16 06/09/16 06/09/16 01:00 01:00 01:00 WBC 6.3 RBC 4.33 L Hgb 12.2 L Hct 36.8 L MCV 85 MCH 28.2 MCHC 33.2 RDW 16.2 H Plt Count 117 L MPV 7.0 L Neut % (Auto) 77.0 H Lymph % (Auto) 6.9 L [place] % (Auto) 9.4 Eos % (Auto) 6.3 H Baso % (Auto) 0.4 Absolute Neuts (auto) 4.85 Absolute Lymphs (auto) 0.38 L PT 11.8 H INR 1.1 APTT 27.5 Puncture Site pH pCO2 pO2 HCO3 Total CO2 Base Excess FiO2 % Specimen Drawn By Sodium 133 L Potassium 3.5 Chloride 91 L Carbon Dioxide 32 Anion Gap 14 BUN 77 H Creatinine 2.20 H Estimated GFR (MDRD) 31 L Glucose 201 H Calculated Osmolality 285 Lactic Acid Calcium 9.5 Corrected Calcium 9.7 Total Bilirubin 1.4 H AST 39 ALT 34 Alkaline Phosphatase 103 Creatine Kinase 61 Troponin I 0.06 Ihc-W-Iuespirdqdw Pept 2220 H Total Protein 7.9 Albumin 3.8 Urine Color Urine Clarity Urine pH Ur Specific [place] Urine Protein Urine Glucose (UA) Urine Ketones Urine Occult Blood Urine Nitrite Urine Bilirubin Urine Urobilinogen Ur Leukocyte Esterase Urine WBC Urine WBC Clumps Urine Bacteria Urine Yeast 06/09/16 06/09/16 06/09/16 01:00 01:38 01:40 WBC RBC Hgb Hct MCV MCH MCHC RDW Plt Count MPV Neut % (Auto) Lymph % (Auto) [place] % (Auto) Eos % (Auto) Baso % (Auto) Absolute Neuts (auto) Absolute Lymphs (auto) PT INR APTT Puncture Site Right radial pH 7.440 pCO2 50.0 H pO2 58.0 L HCO3 34.0 H Total CO2 35.5 H Base Excess 8.3 H FiO2 % 21% Specimen Drawn By Smijen Sodium Potassium Chloride Carbon Dioxide Anion Gap BUN Creatinine Estimated GFR (MDRD) Glucose Calculated Osmolality Lactic Acid 1.9 Calcium Corrected Calcium Total Bilirubin AST ALT Alkaline Phosphatase Creatine Kinase Troponin I Grw-A-Pqkmdnmmynw Pept Total Protein Albumin Urine Color Yellow Urine Clarity Cldy Urine pH 6.0 Ur Specific [place] 1.010 Urine Protein 1+ H Urine Glucose (UA) Neg Urine Ketones Neg Urine Occult Blood 1+ H Urine Nitrite Neg Urine Bilirubin Neg Urine Urobilinogen <2.0 Ur Leukocyte Esterase 2+ H Urine WBC Tntc H Urine WBC Clumps Present H Urine Bacteria Few Urine Yeast Sm amt - Diagnostic Findings EK bpm. Electronic ventricular pacemaker. Reviewed EKG personally. Chest x-ray, viewed personally: EXAM: PORTABLE CHEST 1 VIEW COMPARISON: 05/18/2016 FINDINGS: Multi lead right-sided pacemaker remains in place. Cardiomegaly is unchanged. Progressive pulmonary edema from prior. No confluent airspace disease or large pleural effusion. No pneumothorax. IMPRESSION: Stable cardiomegaly with progressive pulmonary edema. - Assessment (1) Acute respiratory failure with hypoxia J96.01 - ACUTE RESPIRATORY FAILURE WITH HYPOXIA Acute Present on Admission: Yes Patient with tachypnea and low PO2. Plan: BiPAP 10/5 FiO2 50% and adjust as needed. Will also help with acute CHF. (2) Acute on chronic systolic (congestive) heart failure I50.23 - ACUTE ON CHRONIC SYSTOLIC (CONGESTIVE) HEART FAILURE Acute Present on Admission: Yes The patient has both acute and chronic heart failure. Heart failure type: systolic. Echocardiogram results from past: Echo 2013: EF 30%. Systolic dysfunction. Plan: Admit to PCU with telemetry. CHF order set. Diet of 2 g Na. Daily weights with strict I/O's. No IVF unless patient is NPO. As tolerated, give beta kaylee. No ANNETTE inhibitor or ARB due to acute on chronic kidney disease, Cr 2.2. Give Lasix IV scheduled. Replace potassium. Monitor heart rate, blood pressure, and respiratory status carefully. Provide support with oxygen as needed. Provide teaching regarding heart failure, 2g Na diet, daily weights, signs of acute heart failure. (3) Acute cystitis with hematuria N30.01 - ACUTE CYSTITIS WITH HEMATURIA Acute Present on Admission: Yes History of prolonged UTI, hospitalized [facility] 04[facility]. Plan: Cultures ordered. IV Levaquin. IV fluconazole due to yeast found in urine. (4) Type 2 diabetes mellitus with diabetic polyneuropathy E11.42 - TYPE 2 DIABETES MELLITUS WITH DIABETIC POLYNEUROPATHY Acute Qualifiers: Diabetes mellitus medical billing clerk insulin use: with medical billing clerk use Qualified Code( s): E11.42 - Type 2 diabetes mellitus with diabetic polyneuropathy; Z79.4 - [place] (current) use of insulin Plan: Hold oral diabetes medications. Check fingerstick blood sugars q ac and hs. Sliding scale insulin. Ordered A1c and urine microalbumin. (5) Yeast cystitis B37.41 - CANDIDAL CYSTITIS AND URETHRITIS Acute Present on Admission: Yes Plan: Could also have bacterial infection, so cultures have been ordered. IV fluconazole due to yeast found in urine. (6) Cirrhosis K74.60 - UNSPECIFIED CIRRHOSIS OF LIVER Chronic Present on Admission: Yes Chronic issue. Plan: Monitor for worsening. Continue home medications. (7) Splenomegaly R16.1 - SPLENOMEGALY, NOT ELSEWHERE CLASSIFIED Chronic Present on Admission: Yes Noted. (8) Obstructive sleep apnea G47.33 - OBSTRUCTIVE SLEEP APNEA (ADULT) (PEDIATRIC) Chronic Present on Admission: Yes Encourage patient to wear CPAP at night. - Plan In summary, this patient is acutely and critically ill. The patient requires treatment of vital organ failure and measures to prevent further life- threatening deterioration of condition. I have spent 70 min in the critical care of this patient. Case Care Discussed with: Patient, Nursing Staff, Respiratory Therapy
[2016-06-09] MEDS ORDERED: FUROSEMIDE 40 MG/4 ML VIAL IV ONE (03:24)
[2016-06-09] MEDS ORDERED: NITROGLYCERINE 0.4 MG TAB SL PRN (04:45)
[2016-06-09] MEDS ORDERED: BISACODYL 5 MG TAB PO PRN (04:50)
[2016-06-09] MEDS ORDERED: PROMETHAZINE 25 MG/ML VIAL IV PRN (04:50)
[2016-06-09] MEDS ORDERED: ONDANSETRON HCL 4 MG/2 ML VIAL IV PRN (04:50)
[2016-06-09] MEDS ORDERED: GUAIFEN 100 MG-DEXTROMETH 10 MG PER 5 ML PO PRN (04:50)
[2016-06-09] MEDS ORDERED: GLUCAGON 1 MG VIAL SQ PRN (04:50)
[2016-06-09] MEDS ORDERED: TEMAZEPAM 15 MG CAP PO PRN (04:50)
[2016-06-09] MEDS ORDERED: DEXTROSE 25 GM/50 ML PFS IV PRN (04:50)
[2016-06-09] MEDS ORDERED: Aluminum;Magnesium;Simethicone 30 ML UDC PO PRN ×2 (04:50→08:46)
[2016-06-09] MEDS ORDERED: ACETAMINOPHEN 325 MG/TAB TABLET PO PRN (04:50)
[2016-06-09] MEDS ORDERED: GLUCOSE (ORAL GEL) 15 GM TUBE PO PRN (04:50)
[2016-06-09] MEDS ORDERED: ACETAMINOPHEN 325 MG SUPP PR PRN (04:50)
[2016-06-09] MEDS ORDERED: BENZONATATE 100 MG PERLES PO PRN (04:50)
[2016-06-09] MEDS ORDERED: ENOXAPARIN 40 MG/0.4 ML PFS SQ SCH (05:00)
[2016-06-09] MEDS ORDERED: POTASSIUM CHLORIDE 20 MEQ TAB PO ONE (05:00)
[2016-06-09] MEDS ORDERED: Pharmacy Order Set Alert SCH (05:00)
[2016-06-09] MEDS: FUROSEMIDE 40 MG/4 ML VIAL IV SCH ×3 (05:43→21:09)
[2016-06-09] MEDS ORDERED: Vaccine Screening Complete SCH (06:00)
[2016-06-09] MEDS: REGULAR INSULIN 100 UNITS/ML - 3 ML VIAL SQ SCH ×5 (06:52→21:09)
[2016-06-09] MEDS: ATORVASTATIN 40 MG TAB PO SCH (07:36)
[2016-06-09] MEDS: CARVEDILOL 3.125 MG TAB PO SCH ×2 (07:36→21:07)
[2016-06-09] MEDS: POTASSIUM CHLORIDE 20 MEQ TAB PO SCH ×2 (07:36→16:08)
[2016-06-09] MEDS ORDERED: GLARGINE INSULIN (LANTUS) 100 UNITS/ML PEN SQ SCH ×2 (08:00→09:00)
[2016-06-09] MEDS ORDERED: LACTULOSE 10 GM/15 ML ORAL SOLN 480 ML PO PRN (08:11)
[2016-06-09] MEDS ORDERED: Non-Formulary Medication ITEM (Magnesium Hydroxide/Al Hydrox [Mylanta Liquid] 30 ML) PO PRN (08:11)
[2016-06-09] MEDS ORDERED: TRAMADOL HCL 50 MG TAB PO PRN (08:11)
[2016-06-09] MEDS ORDERED: HYDROCODONE 10 MG/ACETAMIN 325 MG TAB PO PRN (08:11)
--- NOTE | 2016-06-09 09:04 | GENMEDPROG ---
Chief Complaint: acute respiratory failure, sys CHF, UTI, DM-2, CKD Subjective Note: Patient has requested not to be resuscitated in event of cardiac or respiratory arrest. (DNR) Diabetes remains poorly controlled, cultures are pending. Current Medication List: Reviewed Currently: Reports: RANDOLPH, SOB. Denies: Nausea and Vomiting, Ambulating DVT Prophylaxis: Yes - Physical Examination Vital Signs and I&O: Last Vital Signs Temp 99.3 F 06/09/16 07:28 Pulse 75 06/09/16 08:00 Resp 18 06/09/16 07:28 BP 136/75 06/09/16 07:28 Pulse Ox 98 06/09/16 07:28 Oxygen Pulse Oxygen Saturation 98 O2 Device Nasal Cannula Oxygen Flow Rate 2 Fraction of Inspired Oxygen ( 30 FIO2) Intake & Output 06/06/16 06/07/16 06/08/16 06/09/16 23:59 23:59 23:59 23:59 Intake Total 440 Output Total 1275 Balance -835 Patient's weight 163.775 kg General: Alert, Oriented x3, Cooperative, No acute distress, Mild distress, Weakness, Fatigue HEENT: PERRLA, EOMI, Anicteric Sclera, Mucous membr. moist/pink Neck: Non-tender, Full range of motion, Normal Trachea alignment, Normal inspection Lymphatics: Normal (no adenopathy) Respiratory: Rales, Tachypnea, Wheezes (AUDIBLE - EXPIRATORY) Cardiovascular: Regular rate and rhythm, Normal S1, Normal S2 GI: Normal bowel sounds, Soft, Non tender, Obese Extremities/Musculoskeletal: Normal pulses, Strength (LLE atrophied due to disuse, decreased strength, Charcot foot on left) Skin: Warm,Dry and Intact, No rashes Neurological: Normal speech, Cranial nerves 3-12 NL, Strength (decreased LLE), Gait Unsteady Psych/Mental Status: Appropriate, Normal Affect, Cooperative Lab/DI/Studies Reviewed: Laboratory Tests 06/09/16 06/09/16 06/09/16 01:00 01:00 01:00 WBC 6.3 Hgb 12.2 L Hct 36.8 L Plt Count 117 L Neut % (Auto) 77.0 H Lymph % (Auto) 6.9 L [place] % (Auto) 9.4 Eos % (Auto) 6.3 H PT 11.8 H INR 1.1 APTT 27.5 pH pCO2 pO2 HCO3 Total CO2 Base Excess FiO2 % Sodium 133 L Potassium 3.5 Chloride 91 L Carbon Dioxide 32 Anion Gap 14 BUN 77 H Creatinine 2.20 H Estimated GFR (MDRD) 31 L Glucose 201 H POC Capillary Glucose Hemoglobin A1c Calculated Osmolality 285 Lactic Acid Corrected Calcium 9.7 Magnesium Total Bilirubin 1.4 H AST 39 ALT 34 Alkaline Phosphatase 103 Creatine Kinase 61 Troponin I 0.06 Tva-Q-Lcynkakkoag Pept 2220 H Total Protein 7.9 Albumin 3.8 Urine Color Urine Clarity Urine pH Ur Specific [place] Urine Protein Urine Nitrite Urine Bilirubin Ur Leukocyte Esterase Urine WBC Urine Bacteria 06/09/16 06/09/16 06/09/16 01:00 01:00 01:38 WBC Hgb Hct Plt Count Neut % (Auto) Lymph % (Auto) [place] % (Auto) Eos % (Auto) PT INR APTT pH pCO2 pO2 HCO3 Total CO2 Base Excess FiO2 % Sodium Potassium Chloride Carbon Dioxide Anion Gap BUN Creatinine Estimated GFR (MDRD) Glucose POC Capillary Glucose Hemoglobin A1c 7.9 H Calculated Osmolality Lactic Acid 1.9 Corrected Calcium Magnesium Total Bilirubin AST ALT Alkaline Phosphatase Creatine Kinase Troponin I Fio-C-Ldnzjlhdinp Pept Total Protein Albumin Urine Color Yellow Urine Clarity Cldy Urine pH 6.0 Ur Specific [place] 1.010 Urine Protein 1+ H Urine Nitrite Neg Urine Bilirubin Neg Ur Leukocyte Esterase 2+ H Urine WBC Tntc H Urine Bacteria Few 06/09/16 06/09/16 06/09/16 01:40 04:05 05:56 WBC Hgb Hct Plt Count Neut % (Auto) Lymph % (Auto) [place] % (Auto) Eos % (Auto) PT INR APTT pH 7.440 pCO2 50.0 H pO2 58.0 L HCO3 34.0 H Total CO2 35.5 H Base Excess 8.3 H FiO2 % 21% Sodium Potassium Chloride Carbon Dioxide Anion Gap BUN Creatinine Estimated GFR (MDRD) Glucose POC Capillary Glucose 278 H Hemoglobin A1c Calculated Osmolality Lactic Acid Corrected Calcium Magnesium 1.90 Total Bilirubin AST ALT Alkaline Phosphatase Creatine Kinase Troponin I Bdv-K-Evnwlvnwmyk Pept Total Protein Albumin Urine Color Urine Clarity Urine pH Ur Specific [place] Urine Protein Urine Nitrite Urine Bilirubin Ur Leukocyte Esterase Urine WBC Urine Bacteria 06/09/16 06/09/16 12:09 12:12 WBC Hgb Hct Plt Count Neut % (Auto) Lymph % (Auto) [place] % (Auto) Eos % (Auto) PT INR APTT pH pCO2 pO2 HCO3 Total CO2 Base Excess FiO2 % Sodium Potassium Chloride Carbon Dioxide Anion Gap BUN Creatinine Estimated GFR (MDRD) Glucose POC Capillary Glucose 512 H* 495 H Hemoglobin A1c Calculated Osmolality Lactic Acid Corrected Calcium Magnesium Total Bilirubin AST ALT Alkaline Phosphatase Creatine Kinase Troponin I Jfy-H-Cyvvxobiohm Pept Total Protein Albumin Urine Color Urine Clarity Urine pH Ur Specific [place] Urine Protein Urine Nitrite Urine Bilirubin Ur Leukocyte Esterase Urine WBC Urine Bacteria - Assessment (1) Acute renal failure Acute N17.9 - ACUTE KIDNEY FAILURE, UNSPECIFIED Qualifiers: Acute renal failure type: with other specified pathological lesion Qualified Code(s): N17.8 - Other acute kidney failure Comment/Plan: Continue careful hydration with intravenous fluids. His creatinine is 2.2; Patient does have known decreased ejection fraction (30% last echo). Will continue to monitor closely. (2) Acute cystitis with hematuria Acute N30.01 - ACUTE CYSTITIS WITH HEMATURIA Comment/Plan: History of prolonged UTI, hospitalized at [facility] 04/2016. Plan:Cultures ordered. Continue with IV Levaquin. IV fluconazole due to yeast found in urine. (3) Acute on chronic systolic (congestive) heart failure Acute I50.23 - ACUTE ON CHRONIC SYSTOLIC (CONGESTIVE) HEART FAILURE Comment/ Plan: The patient has both acute and chronic heart failure. Heart failure type: systolic. Echocardiogram results from past: Echo 2013: EF 30%. Systolic dysfunction. Plan: Admit to PCU with telemetry. CHF order set. Diet of 2 g Na. Daily weights with strict I/O's. No IVF unless patient is NPO. As tolerated, give beta kaylee. No ANNETTE inhibitor or ARB due to acute on chronic kidney disease, Cr 2.2. Give Lasix IV scheduled. Replace potassium. Monitor heart rate, blood pressure, and respiratory status carefully. Provide support with oxygen as needed. Provide teaching regarding heart failure, 2g Na diet, daily weights, signs of acute heart failure. (4) Acute respiratory failure with hypoxia Acute J96.01 - ACUTE RESPIRATORY FAILURE WITH HYPOXIA Comment/Plan: Patient with tachypnea and low PO2. Plan:Patient has refused BiPAP - will provide supplemental O2 @ 2L/min NC. Monitor O2 sats. (5) Obstructive sleep apnea Chronic G47.33 - OBSTRUCTIVE SLEEP APNEA (ADULT) (PEDIATRIC) Comment/Plan: Encourage patient to wear CPAP at night. (6) Type 2 diabetes mellitus with diabetic polyneuropathy Acute E11.42 - TYPE 2 DIABETES MELLITUS WITH DIABETIC POLYNEUROPATHY Qualifiers: Diabetes mellitus terminal superintendent insulin use: with terminal superintendent use Qualified Code( s): E11.42 - Type 2 diabetes mellitus with diabetic polyneuropathy; Z79.4 - long-term (current) use of insulin Comment/Plan: Hold oral diabetes medications. Check fingerstick blood sugars q ac and hs. Sliding scale insulin. Ordered A1c and urine microalbumin. (7) Chronic kidney disease, stage 3 Chronic N18.3 - CHRONIC KIDNEY DISEASE, STAGE 3 (MODERATE) Comment/Plan: Monitor BMP, maintain hydration, avoid any nephrotoxins. (8) Cirrhosis Chronic K74.60 - UNSPECIFIED CIRRHOSIS OF LIVER Qualifiers: Hepatic cirrhosis type: unspecified hepatic cirrhosis Ascites presence: without ascites Qualified Code(s): K74.60 - Unspecified cirrhosis of liver Comment/Plan: Chronic issue. Probably related to uncontrolled diabetes. Plan: Monitor for worsening. Continue home medications. Case Care Discussed with: Patient, Nursing Staff Education/Counseling Given To: Patient Education/Counseling Given Regarding: Diagnosis, Treatment, Prognosis Total Time: 35 min
[2016-06-09] MEDS: TORSEMIDE 20 MG TAB PO SCH (09:49)
[2016-06-09] MEDS: GABAPENTIN 300 MG CAP PO SCH ×2 (09:50→21:07)
[2016-06-09] MEDS: ASPIRIN (CHEWABLE) 81 MG TAB PO SCH (09:50)
[2016-06-09] MEDS: AMIODARONE 200 MG TAB PO SCH ×2 (09:50→21:07)
[2016-06-09] MEDS: Docusate Sodium 100 MG CAP PO SCH (09:50)
[2016-06-09] MEDS: FLUOXETINE 20 MG CAP PO SCH (09:50)
[2016-06-09] MEDS: CHOLECALCIFEROL 1000 UNITS TAB PO SCH (09:50)
[2016-06-09] MEDS: VITAMINS, MULTIPLE CAP PO SCH (09:50)
[2016-06-09] MEDS: ISOSORBIDE MONONITRATE 60 MG TAB PO SCH (09:51)
[2016-06-09] MEDS: DIPYRIDAMOLE 25 MG TAB PO SCH ×2 (09:51→21:06)
[2016-06-09] MEDS: METHYLPREDNISOLONE 125 MG/2 ML VIAL IV SCH ×3 (09:51→21:09)
[2016-06-09] MEDS: ALPRAZOLAM 0.5 MG TAB PO SCH ×2 (09:52→21:07)
[2016-06-09] MEDS ORDERED: ENOXAPARIN 80 MG/0.8 ML PFS SQ SCH (18:00)
[2016-06-09] MEDS: PANTOPRAZOLE 40 MG TAB PO SCH (21:07)
[2016-06-09] MEDS: FLUCONAZOLE 100 MG TAB PO SCH (21:07)
[2016-06-10] MEDS ORDERED: GLARGINE INSULIN (LANTUS) 100 UNITS/ML PEN SQ ONE (00:09)
[2016-06-10] MEDS ORDERED: GLARGINE INSULIN (LANTUS) 100 UNITS/ML PEN SQ SCH (00:10)
[2016-06-10] MEDS ORDERED: NS 500 ML IV ONE (00:30)
[2016-06-10] MEDS: Levofloxacin 750 mg/150 ml D5W 750 MG/150 ML RTU IV SCH (02:11)
[2016-06-10] MEDS: METHYLPREDNISOLONE 125 MG/2 ML VIAL IV SCH ×4 (05:00→21:48)
[2016-06-10 05:20] LABS: MPV 7.4 fL (7.4-10.4)
[2016-06-10 05:36] LABS: BLOOD UREA NITROGEN 77 MG/DL (9-20); CALCIUM 8.7 MG/DL (8.4-10.2); CALCULATED OSMOLALITY 295 MOs/Kg (270-290); CHLORIDE 90 mEq/L (98-107); GLUCOSE 344 mg/dL (70-99); SODIUM LEVEL 134 mEq/L (137-146)
[2016-06-10] MEDS: FUROSEMIDE 40 MG/4 ML VIAL IV SCH ×2 (06:00→12:06)
[2016-06-10] MEDS: REGULAR INSULIN 100 UNITS/ML - 3 ML VIAL SQ SCH ×4 (06:21→21:58)
[2016-06-10] MEDS: CHOLECALCIFEROL 1000 UNITS TAB PO SCH (08:01)
[2016-06-10] MEDS: ALPRAZOLAM 0.5 MG TAB PO SCH ×2 (08:01→21:47)
[2016-06-10] MEDS: ATORVASTATIN 40 MG TAB PO SCH (08:01)
[2016-06-10] MEDS: Docusate Sodium 100 MG CAP PO SCH (08:02)
[2016-06-10] MEDS: ISOSORBIDE MONONITRATE 60 MG TAB PO SCH (08:02)
[2016-06-10] MEDS: AMIODARONE 200 MG TAB PO SCH ×2 (08:02→21:46)
[2016-06-10] MEDS: GABAPENTIN 300 MG CAP PO SCH ×2 (08:02→21:47)
[2016-06-10] MEDS: DIPYRIDAMOLE 25 MG TAB PO SCH ×2 (08:02→21:48)
[2016-06-10] MEDS: FLUOXETINE 20 MG CAP PO SCH (08:02)
[2016-06-10] MEDS: ASPIRIN (CHEWABLE) 81 MG TAB PO SCH (08:02)
[2016-06-10] MEDS: VITAMINS, MULTIPLE CAP PO SCH (08:02)
[2016-06-10] MEDS: FEBUXOSTAT 40 MG TABLET PO SCH (08:02)
[2016-06-10] MEDS: POTASSIUM CHLORIDE 20 MEQ TAB PO SCH ×2 (08:03→17:23)
[2016-06-10] MEDS: FLUCONAZOLE 100 MG TAB PO SCH (08:03)
[2016-06-10] MEDS: GLARGINE INSULIN (LANTUS) 100 UNITS/ML PEN SQ SCH (08:03)
[2016-06-10] MEDS: CARVEDILOL 3.125 MG TAB PO SCH ×2 (08:03→21:47)
[2016-06-10] MEDS: TORSEMIDE 20 MG TAB PO SCH ×2 (12:05→21:47)
--- NOTE | 2016-06-10 16:25 | GENMEDPROG ---
Subjective Note: Patient improving slowly. No new complaints. Notes Reviewed: Yes: Events from last night noted and discussed with Clinical Staff Current Medication List: Reviewed Currently: Reports: RANDOLPH, SOB. Denies: Nausea and Vomiting, Ambulating DVT Prophylaxis: Yes - Physical Examination Vital Signs and I&O: Last Vital Signs Temp 98.4 F 06/10/16 13:01 Pulse 62 06/10/16 14:00 Resp 18 06/10/16 13:01 BP 132/61 06/10/16 13:01 Pulse Ox 96 06/10/16 13:01 Oxygen Pulse Oxygen Saturation 96 O2 Device Nasal Cannula Oxygen Flow Rate 2 Fraction of Inspired Oxygen ( 30 FIO2) Intake & Output 06/07/16 06/08/16 06/09/16 06/10/16 23:59 23:59 23:59 23:59 Intake Total 2937 1150 Output Total 4375 1050 Balance -1438 100 Patient's weight 163.775 kg 106.776 kg General: Alert, Oriented x3, Cooperative, No acute distress, Mild distress, Weakness, Fatigue HEENT: PERRLA, EOMI, Anicteric Sclera, Mucous membr. moist/pink Neck: Non-tender, Full range of motion, Normal Trachea alignment, Normal inspection Lymphatics: Normal (no adenopathy) Respiratory: Rales, Tachypnea, Wheezes (AUDIBLE - EXPIRATORY) Cardiovascular: Regular rate and rhythm, Normal S1, Normal S2 GI: Normal bowel sounds, Soft, Non tender, Obese Extremities/Musculoskeletal: Normal pulses, Strength (LLE atrophied due to disuse, decreased strength, Charcot foot on left) Skin: Warm,Dry and Intact, No rashes Neurological: Normal speech, Cranial nerves 3-12 NL, Strength (decreased LLE), Gait Unsteady Psych/Mental Status: Appropriate, Normal Affect, Cooperative Lab/DI/Studies Reviewed: Abnormal Lab Results 06/09/16 06/09/16 06/09/16 16:06 18:40 20:53 RBC Hgb Hct RDW Plt Count Sodium Chloride BUN Creatinine Estimated GFR (MDRD) Glucose POC Capillary Glucose 484 H 517 H* 467 H Calculated Osmolality LDL Cholesterol, Calc HDL Cholesterol 06/09/16 06/09/16 06/10/16 23:43 23:44 04:20 RBC Hgb Hct RDW Plt Count Sodium 134 L Chloride 90 L BUN 77 H Creatinine 2.20 H Estimated GFR (MDRD) 31 L Glucose 344 H POC Capillary Glucose 408 H 414 H Calculated Osmolality 295 H LDL Cholesterol, Calc 101.0 H HDL Cholesterol 37.0 L 06/10/16 06/10/16 06/10/16 04:20 05:55 11:44 RBC 4.29 L Hgb 12.1 L Hct 36.2 L RDW 15.9 H Plt Count 101 L Sodium Chloride BUN Creatinine Estimated GFR (MDRD) Glucose POC Capillary Glucose 334 H 415 H Calculated Osmolality LDL Cholesterol, Calc HDL Cholesterol 06/10/16 15:10 RBC Hgb Hct RDW Plt Count Sodium Chloride BUN Creatinine Estimated GFR (MDRD) Glucose POC Capillary Glucose 434 H Calculated Osmolality LDL Cholesterol, Calc HDL Cholesterol - Assessment (1) Acute renal failure Acute N17.9 - ACUTE KIDNEY FAILURE, UNSPECIFIED Qualifiers: Acute renal failure type: with other specified pathological lesion Qualified Code(s): N17.8 - Other acute kidney failure Comment/Plan: Continue careful hydration with intravenous fluids. His creatinine is 2.2; Patient does have known decreased ejection fraction (30% last echo). Will continue to monitor closely. Restart home torsemide t.i.d. instead of daily. Discontinue Lasix. Normal saline at 50 an hour. (2) Acute cystitis with hematuria Acute N30.01 - ACUTE CYSTITIS WITH HEMATURIA Comment/Plan: Urine culture growing a presumed Enterococcus. Further identification is pending. If Enterococcus is confirmed will need to adjust antibiotics. (3) Acute on chronic systolic (congestive) heart failure Acute I50.23 - ACUTE ON CHRONIC SYSTOLIC (CONGESTIVE) HEART FAILURE Comment/ Plan: Continue current heart failure management per protocol. (4) Acute respiratory failure with hypoxia Resolved J96.01 - ACUTE RESPIRATORY FAILURE WITH HYPOXIA Comment/Plan: Respiratory failure significantly improved. (5) Obstructive sleep apnea Chronic G47.33 - OBSTRUCTIVE SLEEP APNEA (ADULT) (PEDIATRIC) Comment/Plan: Encourage patient to wear CPAP at night. (6) Type 2 diabetes mellitus with diabetic polyneuropathy Acute E11.42 - TYPE 2 DIABETES MELLITUS WITH DIABETIC POLYNEUROPATHY Qualifiers: Diabetes mellitus [facility] insulin use: with tank terminal gauger use Qualified Code( s): E11.42 - Type 2 diabetes mellitus with diabetic polyneuropathy; Z79.4 - tank terminal gauger (current) use of insulin Comment/Plan: Hold oral diabetes medications. Check fingerstick blood sugars q ac and hs. Sliding scale insulin. Ordered A1c and urine microalbumin. (7) Chronic kidney disease, stage 3 Chronic N18.3 - CHRONIC KIDNEY DISEASE, STAGE 3 (MODERATE) Comment/Plan: Monitor BMP, maintain hydration, avoid any nephrotoxins. (8) Cirrhosis Chronic K74.60 - UNSPECIFIED CIRRHOSIS OF LIVER Qualifiers: Hepatic cirrhosis type: unspecified hepatic cirrhosis Ascites presence: without ascites Qualified Code(s): K74.60 - Unspecified cirrhosis of liver Comment/Plan: Chronic issue. Probably related to uncontrolled diabetes. Plan: Monitor for worsening. Continue home medications. - Plan Increase IV fluid restart home Lasix dose. Disposition Plan: Hopefully home soon Case Care Discussed with: Patient, Nursing Staff Education/Counseling Given To: Patient Education/Counseling Given Regarding: Diagnosis, Treatment, Prognosis, Follow Up , Disposition Plan Total Time: 55 minutes Critical Care: No Couseling Time (>50% in counseling/coordination): No
[2016-06-10] MEDS: ENOXAPARIN 60 MG/0.6 ML PFS SQ SCH (17:24)
[2016-06-10] MEDS: REGULAR INSULIN 100 UNITS/ML - 3 ML VIAL IV SCH ×4 (17:24→23:25)
[2016-06-10] MEDS: GLIPIZIDE 10 MG TAB PO SCH (17:25)
[2016-06-10] MEDS: NS 1,000 ML IV SCH ×2 (17:25→23:26)
[2016-06-10] MEDS: INSULIN ASPART 100 UNITS/ML PEN SQ SCH (17:26)
[2016-06-10] MEDS: PANTOPRAZOLE 40 MG TAB PO SCH (21:47)
[2016-06-10] MEDS: SENNA CONCENTRATE TAB PO PRN (21:52)
[2016-06-11] MEDS: REGULAR INSULIN 100 UNITS/ML - 3 ML VIAL IV SCH ×2 (01:26→03:15)
[2016-06-11] MEDS: Levofloxacin 750 mg/150 ml D5W 750 MG/150 ML RTU IV SCH (01:38)
[2016-06-11] MEDS: TORSEMIDE 20 MG TAB PO SCH ×3 (05:12→21:36)
[2016-06-11] MEDS: REGULAR INSULIN 100 UNITS/ML - 3 ML VIAL SQ SCH ×4 (05:22→21:43)
[2016-06-11 05:41] LABS: MPV 7.4 fL (7.4-10.4)
[2016-06-11 05:49] LABS: BLOOD UREA NITROGEN 89 MG/DL (9-20); CALCIUM 8.7 MG/DL (8.4-10.2); CALCULATED OSMOLALITY 294 MOs/Kg (270-290); CHLORIDE 93 mEq/L (98-107); GLUCOSE 184 mg/dL (70-99); SODIUM LEVEL 136 mEq/L (137-146)
[2016-06-11] MEDS: GLIPIZIDE 10 MG TAB PO SCH ×2 (06:21→16:04)
[2016-06-11 07:48] LABS: SEG NEUTROPHIL 96 % (45-76); TOTAL CELL COUNT 100
[2016-06-11] MEDS: INSULIN ASPART 100 UNITS/ML PEN SQ SCH ×3 (08:30→16:04)
[2016-06-11] MEDS: GLARGINE INSULIN (LANTUS) 100 UNITS/ML PEN SQ SCH (09:00)
[2016-06-11] MEDS: ASPIRIN (CHEWABLE) 81 MG TAB PO SCH (10:08)
[2016-06-11] MEDS: FLUOXETINE 20 MG CAP PO SCH (10:09)
[2016-06-11] MEDS: CHOLECALCIFEROL 1000 UNITS TAB PO SCH (10:09)
[2016-06-11] MEDS: DIPYRIDAMOLE 25 MG TAB PO SCH ×2 (10:09→21:35)
[2016-06-11] MEDS: VITAMINS, MULTIPLE CAP PO SCH (10:09)
[2016-06-11] MEDS: GABAPENTIN 300 MG CAP PO SCH ×2 (10:09→21:36)
[2016-06-11] MEDS: ALPRAZOLAM 0.5 MG TAB PO SCH ×2 (10:09→21:36)
[2016-06-11] MEDS: ISOSORBIDE MONONITRATE 60 MG TAB PO SCH (10:09)
[2016-06-11] MEDS: CARVEDILOL 3.125 MG TAB PO SCH ×2 (10:10→21:35)
[2016-06-11] MEDS: AMIODARONE 200 MG TAB PO SCH ×2 (10:10→21:35)
[2016-06-11] MEDS: FLUCONAZOLE 100 MG TAB PO SCH (10:10)
[2016-06-11] MEDS: POTASSIUM CHLORIDE 20 MEQ TAB PO SCH ×2 (10:10→18:11)
[2016-06-11] MEDS: METHYLPREDNISOLONE 125 MG/2 ML VIAL IV SCH ×2 (10:11→21:36)
[2016-06-11] MEDS: ATORVASTATIN 40 MG TAB PO SCH (13:07)
[2016-06-11] MEDS: Docusate Sodium 100 MG CAP PO SCH (13:07)
[2016-06-11] MEDS: LINEZOLID 600 MG TAB PO SCH ×2 (15:00→21:36)
[2016-06-11] MEDS: ENOXAPARIN 60 MG/0.6 ML PFS SQ SCH (16:05)
--- NOTE | 2016-06-11 17:53 | GENMEDPROG ---
Subjective Note: Patient found to have Enterococcus in his urine sensitive only to Zyvox. Notes Reviewed: Yes: Events from last night noted and discussed with Clinical Staff Currently: Reports: RANDOLPH, SOB. Denies: Nausea and Vomiting, Ambulating DVT Prophylaxis: Yes - Physical Examination Vital Signs and I&O: Last Vital Signs Temp 97.7 F 06/11/16 17:37 Pulse 58 L 06/11/16 17:37 Resp 20 06/11/16 17:37 BP 123/76 06/11/16 17:37 Pulse Ox 94 06/11/16 17:37 Oxygen Pulse Oxygen Saturation 94 O2 Device Nasal Cannula Oxygen Flow Rate 2 Fraction of Inspired Oxygen ( 30 FIO2) Intake & Output 06/08/16 06/09/16 06/10/16 06/11/16 23:59 23:59 23:59 23:59 Intake Total 2937 2012 770 Output Total 4375 2950 600 Balance -4616 -545 170 Patient's weight 163.775 kg 106.776 kg 107.637 kg General: Alert, Oriented x3, Cooperative, No acute distress, Mild distress, Weakness, Fatigue HEENT: PERRLA, EOMI, Anicteric Sclera, Mucous membr. moist/pink Neck: Non-tender, Full range of motion, Normal Trachea alignment, Normal inspection Lymphatics: Normal (no adenopathy) Respiratory: Rales, Tachypnea, Wheezes (AUDIBLE - EXPIRATORY) Cardiovascular: Regular rate and rhythm, Normal S1, Normal S2 GI: Normal bowel sounds, Soft, Non tender, Obese Extremities/Musculoskeletal: Normal pulses, Strength (LLE atrophied due to disuse, decreased strength, Charcot foot on left) Skin: Warm,Dry and Intact, No rashes Neurological: Normal speech, Cranial nerves 3-12 NL, Strength (decreased LLE), Gait Unsteady Psych/Mental Status: Appropriate, Normal Affect, Cooperative Lab/DI/Studies Reviewed: Abnormal Lab Results 06/10/16 06/10/16 06/10/16 19:00 21:01 23:10 RBC Hgb Hct RDW Plt Count Seg Neuts % (Manual) Lymphocytes % (Manual) Absolute Lymphocytes Sodium Chloride BUN Creatinine Estimated GFR (MDRD) Glucose POC Capillary Glucose 488 H 444 H 328 H Calculated Osmolality 06/11/16 06/11/16 06/11/16 01:11 03:10 04:50 RBC 4.29 L Hgb 12.2 L Hct 36.6 L RDW 15.6 H Plt Count 108 L Seg Neuts % (Manual) 96 H Lymphocytes % (Manual) 3 L Absolute Lymphocytes 0.22 L Sodium Chloride BUN Creatinine Estimated GFR (MDRD) Glucose POC Capillary Glucose 268 H 203 H Calculated Osmolality 06/11/16 06/11/16 06/11/16 04:50 05:12 12:50 RBC Hgb Hct RDW Plt Count Seg Neuts % (Manual) Lymphocytes % (Manual) Absolute Lymphocytes Sodium 136 L Chloride 93 L BUN 89 H Creatinine 2.30 H Estimated GFR (MDRD) 29 L Glucose 184 H POC Capillary Glucose 189 H 332 H Calculated Osmolality 294 H 06/11/16 17:35 RBC Hgb Hct RDW Plt Count Seg Neuts % (Manual) Lymphocytes % (Manual) Absolute Lymphocytes Sodium Chloride BUN Creatinine Estimated GFR (MDRD) Glucose POC Capillary Glucose 291 H Calculated Osmolality - Assessment (1) Acute renal failure Acute N17.9 - ACUTE KIDNEY FAILURE, UNSPECIFIED Qualifiers: Acute renal failure type: with other specified pathological lesion Qualified Code(s): N17.8 - Other acute kidney failure Comment/Plan: Continue careful hydration with intravenous fluids. His creatinine is 2.2; Patient does have known decreased ejection fraction (30% last echo). Will continue to monitor closely. Restart home torsemide t.i.d. instead of daily. Discontinue Lasix. Normal saline at 50 an hour. (2) Acute cystitis with hematuria Acute N30.01 - ACUTE CYSTITIS WITH HEMATURIA Comment/Plan: Will start Zyvox for Enterococcus. (3) Acute on chronic systolic (congestive) heart failure Acute I50.23 - ACUTE ON CHRONIC SYSTOLIC (CONGESTIVE) HEART FAILURE Comment/ Plan: Continue current heart failure management per protocol. (4) Acute respiratory failure with hypoxia Resolved J96.01 - ACUTE RESPIRATORY FAILURE WITH HYPOXIA Comment/Plan: Respiratory failure significantly improved. (5) Obstructive sleep apnea Chronic G47.33 - OBSTRUCTIVE SLEEP APNEA (ADULT) (PEDIATRIC) Comment/Plan: Encourage patient to wear CPAP at night. 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 Check fingerstick blood sugars q ac and hs. Sliding scale insulin. Ordered A1c and urine microalbumin. (7) Chronic kidney disease, stage 3 Chronic N18.3 - CHRONIC KIDNEY DISEASE, STAGE 3 (MODERATE) Comment/Plan: Monitor BMP, maintain hydration, avoid any nephrotoxins. (8) Cirrhosis Chronic K74.60 - UNSPECIFIED CIRRHOSIS OF LIVER Qualifiers: Hepatic cirrhosis type: unspecified hepatic cirrhosis Ascites presence: without ascites Qualified Code(s): K74.60 - Unspecified cirrhosis of liver Comment/Plan: Chronic issue. Probably related to uncontrolled diabetes. Plan: Monitor for worsening. Continue home medications. - Plan Increase IV fluid restart home Lasix dose. Disposition Plan: Hopefully home soon Case Care Discussed with: Patient, Nursing Staff Education/Counseling Given To: Patient Education/Counseling Given Regarding: Diagnosis, Treatment, Prognosis Total Time: 45 minutes
[2016-06-11] MEDS: NS 1,000 ML IV SCH (18:11)
[2016-06-11] MEDS: PANTOPRAZOLE 40 MG TAB PO SCH (21:36)
[2016-06-11] MEDS: SENNA CONCENTRATE TAB PO PRN (21:45)
[2016-06-12 05:34] VITALS: BMI 34.9
[2016-06-12] MEDS: REGULAR INSULIN 100 UNITS/ML - 3 ML VIAL SQ SCH ×2 (05:39→12:02)
[2016-06-12 05:45] LABS: MPV 7.4 fL (7.4-10.4)
[2016-06-12 05:52] LABS: BLOOD UREA NITROGEN 95 MG/DL (9-20); CALCIUM 8.4 MG/DL (8.4-10.2); CALCULATED OSMOLALITY 298 MOs/Kg (270-290); CHLORIDE 97 mEq/L (98-107); GLUCOSE 122 mg/dL (70-99); SODIUM LEVEL 139 mEq/L (137-146)
[2016-06-12 08:16] LABS: SEG NEUTROPHIL 94 % (45-76)
[2016-06-12] MEDS: GLARGINE INSULIN (LANTUS) 100 UNITS/ML PEN SQ SCH (08:25)
[2016-06-12] MEDS: INSULIN ASPART 100 UNITS/ML PEN SQ SCH ×2 (08:29→12:03)
[2016-06-12 08:35] VITALS: TEMP 97.6
[2016-06-12] MEDS: VITAMINS, MULTIPLE CAP PO SCH (08:49)
[2016-06-12] MEDS: GLIPIZIDE 10 MG TAB PO SCH (08:49)
[2016-06-12] MEDS: GABAPENTIN 300 MG CAP PO SCH (08:49)
[2016-06-12] MEDS: LINEZOLID 600 MG TAB PO SCH (08:50)
[2016-06-12] MEDS: CARVEDILOL 3.125 MG TAB PO SCH (08:50)
[2016-06-12] MEDS: FLUCONAZOLE 100 MG TAB PO SCH (08:50)
[2016-06-12] MEDS: Docusate Sodium 100 MG CAP PO SCH (08:51)
[2016-06-12] MEDS: ISOSORBIDE MONONITRATE 60 MG TAB PO SCH (08:51)
[2016-06-12] MEDS: ASPIRIN (CHEWABLE) 81 MG TAB PO SCH (08:51)
[2016-06-12] MEDS: ATORVASTATIN 40 MG TAB PO SCH (08:52)
[2016-06-12] MEDS: FEBUXOSTAT 40 MG TABLET PO SCH (08:52)
[2016-06-12] MEDS: AMIODARONE 200 MG TAB PO SCH (08:52)
[2016-06-12] MEDS: DIPYRIDAMOLE 25 MG TAB PO SCH (08:53)
[2016-06-12] MEDS: POTASSIUM CHLORIDE 20 MEQ TAB PO SCH (08:54)
[2016-06-12] MEDS: METHYLPREDNISOLONE 125 MG/2 ML VIAL IV SCH (08:54)
[2016-06-12] MEDS: ALPRAZOLAM 0.5 MG TAB PO SCH (09:04)
--- NOTE | 2016-06-12 11:14 | PCM.DCS92 ---
- Final/Secondary Discharge Diagnosis (1) Acute renal failure Acute N17.9 - ACUTE KIDNEY FAILURE, UNSPECIFIED with other specified pathological lesion N17.8 - Other acute kidney failure Comment: Continue careful hydration with intravenous fluids. His creatinine is 2.2; Patient does have known decreased ejection fraction (30% last echo). Will continue to monitor closely. Restart home torsemide t.i.d. instead of daily. Discontinue Lasix. Normal saline at 50 an hour. (2) Acute cystitis with hematuria Acute N30.01 - ACUTE CYSTITIS WITH HEMATURIA Present on Admission: Yes Comment: Will start Zyvox for Enterococcus. (3) Acute on chronic systolic (congestive) heart failure Acute I50.23 - ACUTE ON CHRONIC SYSTOLIC (CONGESTIVE) HEART FAILURE Present on Admission: Yes Comment: Continue current heart failure management per protocol. (4) Acute respiratory failure with hypoxia Resolved J96.01 - ACUTE RESPIRATORY FAILURE WITH HYPOXIA Present on Admission: Yes Comment: Respiratory failure significantly improved. (5) Obstructive sleep apnea Chronic G47.33 - OBSTRUCTIVE SLEEP APNEA (ADULT) (PEDIATRIC) Present on Admission: Yes Comment: Encourage patient to wear CPAP at night. (6) Type 2 diabetes mellitus with diabetic polyneuropathy Acute E11.42 - TYPE 2 DIABETES MELLITUS WITH DIABETIC POLYNEUROPATHY with fpc use E11.42 - Type 2 diabetes mellitus with diabetic polyneuropathy; Z79.4 - senior care (current) use of insulin Comment: Hold oral diabetes medications. Check fingerstick blood sugars q ac and hs. Sliding scale insulin. Ordered A1c and urine microalbumin. (7) Chronic kidney disease, stage 3 Chronic N18.3 - CHRONIC KIDNEY DISEASE, STAGE 3 (MODERATE) Comment: Monitor BMP, maintain hydration, avoid any nephrotoxins. (8) Cirrhosis Chronic K74.60 - UNSPECIFIED CIRRHOSIS OF LIVER Present on Admission: Yes unspecified hepatic cirrhosis without ascites K74.60 - Unspecified cirrhosis of liver Comment: Chronic issue. Probably related to uncontrolled diabetes. Plan: Monitor for worsening. Continue home medications. Discharge Disposition: Assisted Living Facility Discharge Condition: Improved Cognitive Discharge Status: Unimpaired Fuctional Discharge Status: Walker Assistance, Deconditioning, Ambulatory Dysfunction Physician Follow up/Referrals: Ej Gupta PA [Primary Care Provider] - One Week Home Medications / New Prescriptions: No Action Spironolactone [Aldactone] 25 mg PO 0800 Omeprazole [Prilosec] 40 mg PO HS Vitamins, Multiple [Unicap] 1 cap PO DAILY Nitroglycerin [Nitrostat] 0.4 mg SL Q5MX3 PRN PRN Reason: Chest Pain Or Discomfort Metolazone [Zaroxolyn] 5 mg PO Q48H Glipizide [Glucotrol] 10 mg PO BID Temazepam [Restoril] 15 mg PO 2300 Mag Hydrox/Al Hydrox/Simeth [Maalox Maximum Strength Susp] 30 ml PO Q4H PRN PRN Reason: UNKNOWN Lactulose [Constulose] 15 ml PO DAILY PRN PRN Reason: Constipation Hydrocodone Bit/Acetaminophen [[place] 10-325 Tablet] 1 each PO Q6H PRN PRN Reason: Pain Carvedilol [Coreg] 3.125 mg PO BID Alprazolam [Xanax] 0.5 mg PO BID Torsemide [Demadex] 40 mg PO QAM Fluoxetine HCl [Prozac] 40 mg PO 0800 Amiodarone HCl 200 mg PO .[id number] Docusate Sodium [Colace] 100 mg PO 0800 Acetaminophen Ex Str Tablet [TYLENOL EXTRA STRENGTH Tablet] 1,000 mg PO QID PRN PRN Reason: Mild Pain Or Fever Cholecalciferol (Vitamin D3) [Vitamin D3] 2,000 unit PO 0800 Tramadol HCl 50 mg PO Q6-8H PRN #60 tablet PRN Reason: Pain Scale Rating 1 To 3 Guaifenesin-Dextromethorphan [Robitussin Dm] 10 ml PO Q4 PRN PRN Reason: Cough Magnesium Hydroxide [Milk of Magnesia] 30 ml PO DAILY PRN PRN Reason: Constipation Magnesium Hydroxide/Al Hydrox [Mylanta Liquid] 30 ml PO Q4H PRN PRN Reason: Heartburn Or Indigestion Benzonatate [Tessalon Perle] 100 mg PO TID PRN PRN Reason: Cough Potassium Chloride 10 meq PO 0800 Insulin Lispro [Humalog Kwikpen] 8 unit SQ AC Febuxostat [Uloric] 80 mg PO Q48H Insulin Glargine,Hum.rec.anlog [[place] Solostar] 100 unit SQ QAM Torsemide [Demadex] 20 mg PO 1200 Gabapentin [Neurontin] 300 mg PO BID Dipyridamole 150 mg PO BID Aspirin 81 mg PO DAILY Isosorbide Mononitrate [Isosorbide Mononitrate ER] 60 mg PO 0800 Discharge Home Medication List Nitroglycerin [Nitrostat] 0.4 mg SL Q5MX3 PRN 02/14/14 [History Confirmed ] Omeprazole [Prilosec] 40 mg PO HS 02/14/14 [History Confirmed 06/10/16] Vitamins, Multiple [Unicap] 1 cap PO DAILY 02/14/14 [History Confirmed 06/10/16] Glipizide [Glucotrol] 10 mg PO BID 08/15/14 [History Confirmed 06/10/16] Carvedilol [Coreg] 3.125 mg PO BID 04/20/15 [History Confirmed 06/10/16] Lactulose [Constulose] 15 ml PO DAILY PRN 04/20/15 [History Confirmed 06/10/16] Mag Hydrox/Al Hydrox/Simeth [Maalox Maximum Strength Susp] 30 ml PO Q4H PRN [History Confirmed 06/10/16] Amiodarone HCl 200 mg PO .[id number] 04/27/15 [History Confirmed 06/10/16] Docusate Sodium [Colace] 100 mg PO 0800 12/21/15 [History Confirmed 06/10/16] Acetaminophen Ex Str Tablet [TYLENOL EXTRA STRENGTH Tablet] 1,000 mg PO QID PRN 12/29/15 [History Confirmed 06/10/16] Cholecalciferol (Vitamin D3) [Vitamin D3] 2,000 unit PO 0800 12/29/15 [History Confirmed 06/10/16] Aspirin 81 mg PO DAILY 06/09/16 [History Confirmed 06/10/16] Benzonatate [Tessalon Perle] 100 mg PO TID PRN 06/09/16 [History Confirmed 06/10] Dipyridamole 150 mg PO BID 06/09/16 [History Confirmed 06/10/16] Febuxostat [Uloric] 80 mg PO Q48H 06/09/16 [History Confirmed 06/10/16] Gabapentin [Neurontin] 300 mg PO BID 06/09/16 [History Confirmed 06/10/16] Guaifenesin-Dextromethorphan [Robitussin Dm] 10 ml PO Q4 PRN 06/09/16 [History Confirmed 06/10/16] Insulin Lispro [Humalog Kwikpen U-100] 8 unit SQ AC 06/09/16 [History Confirmed 06/10/16] Magnesium Hydroxide [Milk of Magnesia] 30 ml PO DAILY PRN 06/09/16 [History Confirmed 06/10/16] Magnesium Hydroxide/Al Hydrox [Mylanta Liquid] 30 ml PO Q4H PRN 06/09/16 [ History Confirmed 06/10/16] Potassium Chloride 10 meq PO 0800 06/09/16 [History Confirmed 06/10/16] Torsemide [Demadex] 20 mg PO 1200 06/09/16 [History Confirmed 06/10/16] Isosorbide Mononitrate [Isosorbide Mononitrate ER] 60 mg PO 0800 06/10/16 [ History Confirmed 06/10/16] Alprazolam [Xanax] 0.5 mg PO BID #30 tablet 06/12/16 [Rx] Atorvastatin Calcium [Lipitor] 40 mg PO DAILY #30 tablet 06/12/16 [Rx] Hydrocodone Bit/Acetaminophen [[place] 10-325 Tablet] 1 each PO Q6H PRN #30 tablet 06/12/16 [Rx] Insulin Glargine,Hum.rec.anlog [[place] Solostar] 80 unit SQ QAM #1 06/12/16 [ Rx Confirmed 06/10/16] Linezolid [Zyvox] 600 mg PO BID #14 tablet 06/12/16 [Rx] Temazepam [Restoril] 15 mg PO 2300 #20 capsule 06/12/16 [Rx] Torsemide [Demadex] 20 mg PO BID #60 tablet 06/12/16 [Rx] New Discharge Medications (Rx) Alprazolam [Xanax] 0.5 mg PO BID #30 tablet 06/12/16 [Rx] Atorvastatin Calcium [Lipitor] 40 mg PO DAILY #30 tablet 06/12/16 [Rx] Hydrocodone Bit/Acetaminophen [[place] 10-325 Tablet] 1 each PO Q6H PRN #30 tablet 06/12/16 [Rx] Insulin Glargine,Hum.rec.anlog [[place] Solostar] 80 unit SQ QAM #1 06/12/16 [Rx ] Linezolid [Zyvox] 600 mg PO BID #14 tablet 06/12/16 [Rx] Temazepam [Restoril] 15 mg PO 2300 #20 capsule 06/12/16 [Rx] Torsemide [Demadex] 20 mg PO BID #60 tablet 06/12/16 [Rx] O2 Device: Nasal Cannula Oxygen Flow Rate: 2 Oxygen to be used after Discharge: At Night or During Sleep (and prn) Diet at Discharge: As Tolerated, Heart Healthy, Low Salt Activity: No Restrictions, As Tolerated Call Office For: Worsening Symptoms, Fever over 100.5, Pain Uncontrolled By Meds - DC Summary Notes Hospital Course Note:: Discharge summary on patient named ALECIA ANAYA admitted to [facility] on 06/09/16 by Yaya Eli MD. Date of discharge is []. 60-year-old gentleman admitted to our facility with respiratory failure and acute urinary infection found to have a drug resistant enterococcus sensitive to Zyvox. He has had 24 hours of all Zyvox her hospital now stable for discharge back to assisted living facility on oral Zyvox. He has reached maximum benefit of hospitalization. Total Time: 45 min Code: 50442 (>30min.) - Physical Exam Vital Signs: Last Vital Signs Temp 97.6 F 06/12/16 08:34 Pulse 64 06/12/16 08:34 Resp 20 06/12/16 08:34 BP 122/72 06/12/16 08:34 Pulse Ox 97 06/12/16 10:36 Oxygen Pulse Oxygen Saturation 97 O2 Device Nasal Cannula Oxygen Flow Rate 2 Fraction of Inspired Oxygen ( 30 FIO2) Constitutional: Alert. negative: Well appearing Oriented to: Time, Person, Place - HEENT Head: Normal ( normocephalic) Eye: Normal (PERRL, EOMI, Sclera white) Oropharynx: Membranes Dry Tympanic Membrane: Normal Nose: No Symptoms Reported (septum midline) - Respiratory/Cardiovascular Respiratory: Rales, Tachypnea, Wheezes (AUDIBLE - EXPIRATORY) - GI Auscultation: Normal (NABS) Palpation: Normal (Soft,No rebound or guarding, non distended) Tenderness: Non tender Sylvester's Sign: Negative Rectal Exam: Deferred - Musculoskeletal Back: Normal (Non-Tender) Extremities: Normal (Normal tone, Pulses 2+ No cyanosis or edema, FROM) - Integumentary Lymphatics: Normal (no adenopathy) - Neurologic Memory Impaired: Normal Cerebellar: Normal Mood Description: Normal Perception: Normal - Other Exam Other Exam Findings: Laboratory Results - last 24 hr 06/11/16 06/11/16 06/11/16 12:50 17:35 19:15 WBC RBC Hgb Hct MCV MCH MCHC RDW Plt Count MPV Neut % (Auto) Lymph % (Auto) [place] % (Auto) Eos % (Auto) Baso % (Auto) Absolute Neuts (auto) Absolute Lymphs (auto) Seg Neuts % (Manual) Band Neutrophils % Lymphocytes % (Manual) Monocytes % (Manual) Absolute Neutrophils Absolute Lymphocytes Platelet Estimate RBC Morphology Sodium Potassium Chloride Carbon Dioxide Anion Gap BUN Creatinine Estimated GFR (MDRD) Glucose POC Capillary Glucose 332 H 291 H 310 H Calculated Osmolality Calcium Magnesium 06/12/16 06/12/16 06/12/16 05:05 05:05 05:33 WBC 7.0 RBC 4.36 L Hgb 12.2 L Hct 37.3 L MCV 86 MCH 28.1 MCHC 32.9 L RDW 15.6 H Plt Count 106 L MPV 7.4 Neut % (Auto) Cancelled Lymph % (Auto) Cancelled [place] % (Auto) Cancelled Eos % (Auto) Cancelled Baso % (Auto) Cancelled Absolute Neuts (auto) Cancelled Absolute Lymphs (auto) Cancelled Seg Neuts % (Manual) 94 H Band Neutrophils % 0 Lymphocytes % (Manual) 4 L Monocytes % (Manual) 2 Absolute Neutrophils 6.58 Absolute Lymphocytes 0.28 L Platelet Estimate Norm RBC Morphology Norm Sodium 139 Potassium 4.7 Chloride 97 L Carbon Dioxide 33 Anion Gap 14 BUN 95 H Creatinine 2.20 H Estimated GFR (MDRD) 31 L Glucose 122 H POC Capillary Glucose 126 H Calculated Osmolality 298 H Calcium 8.4 Magnesium 2.40 H Microbiology 06/09/16 01:38 Urine - Clean Catch - Midstream Urine Culture - Final Enterococcus faecium
[2016-06-12 11:29] VITALS: BP 104/64
[2016-06-12] MEDS ORDERED: TORSEMIDE 20 MG TAB PO SCH (12:00)
[2016-06-12] MEDS: CHOLECALCIFEROL 1000 UNITS TAB PO SCH (12:02)
[2016-06-12 12:30] VITALS: PULSE 65
[2016-06-14] MEDS ORDERED: AMIODARONE 200 MG TAB PO SCH (09:00)
== END 2016-06-12 13:36 | DRG 291 ==
LOC: ED 00:37 → PCU 03:23
PROVIDERS: ADMIT Internal Medicine; ATTEND Hospitalist
PROC: 4A033R1 Measurement of Arterial Saturation, Peripheral, Percutaneous Approach (ICD-10-PCS; principal; 2016-06-09)
DX: I13.0 Hypertensive heart and chronic kidney disease with heart failure and stage 1 through stage 4 chronic kidney disease, or unspecified chronic kidney disease (principal); J96.01 Acute respiratory failure with hypoxia; I42.9 Cardiomyopathy, unspecified; N17.9 Acute kidney failure, unspecified; E11.42 Type 2 diabetes mellitus with diabetic polyneuropathy; N18.3 Chronic kidney disease, stage 3 (moderate); B37.41 Candidal cystitis and urethritis; I48.91 Unspecified atrial fibrillation; I25.2 Old myocardial infarction; I50.23 Acute on chronic systolic (congestive) heart failure; N30.01 Acute cystitis with hematuria; K74.60 Unspecified cirrhosis of liver; G47.33 Obstructive sleep apnea (adult) (pediatric); B95.2 Enterococcus as the cause of diseases classified elsewhere; I25.10 Atherosclerotic heart disease of native coronary artery without angina pectoris; E78.00 Pure hypercholesterolemia, unspecified; J45.909 Unspecified asthma, uncomplicated; K21.9 Gastro-esophageal reflux disease without esophagitis; M19.90 Unspecified osteoarthritis, unspecified site; M10.9 Gout, unspecified; F32.9 Major depressive disorder, single episode, unspecified; F41.9 Anxiety disorder, unspecified; Z66 Do not resuscitate; Z86.73 Personal history of transient ischemic attack (TIA), and cerebral infarction without residual deficits; Z79.4 Long term (current) use of insulin; Z95.810 Presence of automatic (implantable) cardiac defibrillator; Z86.711 Personal history of pulmonary embolism; Z90.49 Acquired absence of other specified parts of digestive tract; Z89.432 Acquired absence of left foot; Z88.0 Allergy status to penicillin; Z88.3 Allergy status to other anti-infective agents; Z88.5 Allergy status to narcotic agent; Z79.84 Long term (current) use of oral hypoglycemic drugs; Z79.82 Long term (current) use of aspirin; Z16.30 Resistance to unspecified antimicrobial drugs
CPT/HCPCS: 36415; 36600; 71010; 80048; 80053; 80061; 81001; 82043; 82550; 82803; 82962; 83036; 83605; 83735; 83880; 84484; 85007; 85025; 85027; 85610; 85730; 87040; 87070; 87077; 87086; 87186; 87205; 93005; 94640; 94660; 94762; 96361; 96365; 96366; 96372; 96375; 97162; 99285; G0237; J1650; J1940; J1956; J2930; J3490; J7620; S5561